=== PATIENT | female | born 1970 | race Caucasian/White ===

== ENCOUNTER → 2017-05-23 14:26 | Outpatient (CLI) | payer BC, SELFPAY ==
[2017-05-23 16:11] LABS: Vitamin D,25 Hydroxy 9.7 ng/mL (19.95-100.01)
[2017-05-23 16:30] LABS: Absolute Lymphocyte Count 0.98 X10^3/ul (0.83-4.51); Absolute Neutrophil Count 3.6 X10^3/uL (2.0-7.7); Basophil# 0.02 X10^3/uL; Basophil% 0.4 % (0-1); Eosinophil# 0.08 X10^3/uL; Eosinophils% 1.5 % (0-5); Hematocrit 45.3 % (37-47); Hemoglobin 15.3 g/dl (12.0-15.0); Lymphocyte # 0.98 X10^3/ul (4.0); Lymphocyte % 18.3 % (19-41); Mean Corp Hgb Conc 33.8 g/gl (32-36); Mean Corpuscular Volume 91.7 fL (81-99); Mean Platelet Vol. 10.1 fl (6.2-12.0); Monocyte# 0.65 X10^3/uL; Monocyte% 12.1 % (0-10); Neutrophil # 3.62 X10^3/uL (2.7-7.7); Neutrophil % 67.5 % (47-70); Platelet Count 176 K/mm3 (150-450); RBC Distribution Width CV 13.2 % (11.6-14.6); RBC Distribution Width SD 43.6 fl (35.1-43.9); Red Blood Count 4.94 M/mm3 (4.2-5.4); White Blood Count 5.4 K/mm3 (4.4-11.0)
[2017-05-23 16:31] LABS: POSITIVE COUNT NO; POSITIVE DIFFERENTIAL NO; POSITIVE MORPHOLOGY NO
[2017-05-23 16:40] LABS: Erythrocyte Sedimentation Rate 37 mm/hr (0-20)
[2017-05-23 17:21] LABS: ALB/GLOB Ratio 0.9 RATIO (0.9-2.4); AST(SGOT) 12 U/L (15-37); Alanine Aminotransfer ALT/SGPT 27 U/L (13-56); Albumin, Serum 3.7 g/dL (3.2-5.0); Alkaline Phosphatase 84 U/L (45-117); Anion Gap 8 (5-15); BUN 9 mg/dL (7-18); BUN/Creat Ratio 18.9 RATIO (10-20); Calcium,Total 8.5 mg/dL (8.5-10.1); Chloride 104 mmol/L (98-107); Creatinine, Serum 0.48 mg/dL (0.55-1.02); EST Glomerular Filtration Rate 147 mL/min (>60); Est Glom Filt Rate - Afr Amer 178 mL/min (>60); Globulin 4.1 g/dL (2.2-4.2); Glucose 88 mg/dL (74-106); Potassium 3.8 mmol/L (3.5-5.1); Protein, Total 7.8 g/dL (6.4-8.2); Sodium Level 139 mmol/L (136-145)
== END ==
PROVIDERS: Family Provider Family Medicine Geriatric Medicine; PCP Family Medicine Geriatric Medicine; Visit Provider Family Medicine Geriatric Medicine
DX: R53.83 Other fatigue (principal); E55.9 Vitamin D deficiency, unspecified; M35.3 Polymyalgia rheumatica
CPT/HCPCS: 36415; 80053; 82306; 84443; 85025; 85652; 86140

== ENCOUNTER 2017-05-25 17:01 | Emergency (ER) | payer BC, SELFPAY ==
[2017-05-25 17:02] VITALS: BP 158/96; PULSE 96; RESP 16; TEMP 36.8; O2SAT 96; BMI 37.4
[2017-05-25] MEDS: Tetracaine 0.5% Ophthalmic Bottle 1 DRP LEFT EYE (17:55)
[2017-05-25] MEDS: Acyclovir 800 MG Tablet PO (17:55)
[2017-05-25] MEDS: Fluorescein 1 MG STRIP 1 STRIP LEFT EYE (17:56)
--- NOTE | 2017-05-25 18:25 | ED.VISSUMM ---
- ER Visit Summary Date of Service: 05/25/17 Chief Complaint: Rash History of Present Illness: The patient is a [address] Wagner. She reports that she has a headache that began 5 days ago. It was 10 out of 10 at worst and 4-[address] Dempsey and was placed on prednisone. Her ESR was elevated and she is scheduled for temporal artery biopsy in [address] Foy. Patient reports that today she developed a rash on the left side of her forehead. She reports that yesterday her scalp on left eyebrow was exquisitely tender to even the lightest touch. She states that she has had blurred vision for approximately 1 week. Physical Examination: Vitals: Stable. Afebrile. General: Well-nourished and well-developed. Left eye: Slit lamp exam shows no fluorescein dye uptake. There are no dendritic lesions. Her cornea is not involved. Head: Normocephalic atraumatic. Neck: Supple, no lymphadenopathy. No JVD. Nontender. Cardiovascular: Regular rate and rhythm. No murmurs. Respiratory: No respiratory distress. Clear to auscultation bilaterally. Abdominal: Soft, nontender, nondistended, normal bowel sounds. No guarding, rebound, or peritoneal signs. Back: Nontender. Extremities: Nontender, no edema. Skin: Circular rash over the left side of her forehead consistent with shingles. No Tucker sign. Neurologic: Alert and oriented ?3. Cranial nerves II through XII are intact. Normal strength and sensation. Psych: Normal affect. Emergency Department Course and Treatment: She was treated with acyclovir. Treatment Plan: Patient was discussed with Dr. Dempsey. At this point the cause of her headache is now clear. She is instructed to cancel her temporal artery biopsy. She is instructed to continue her prednisone and [place]. She will be placed on valacyclovir as well. Follow-up with Dr. Skinner in 3 days to make sure there is not involvement of her eye. Follow-up Dr. Dempsey in 1 week for another exam. Return to the emergency department for any worsening symptoms. Disposition: To home in improved and stable condition. Impression: 1. Shingles to left side of forehead. This note was generated with [employer] software. It may contain incorrect words, spelling, and punctuation that were not noted in review of the chart prior to signing ED Disposition - Plan for ED Patient: Disposition: Home or Assisted Living Chief Complaint: Eye Problem Instructions: ED Shingles Prescriptions: Hydrocodone Bitart/Apap 5-325 [[place] 5/325] 1 - 2 tablet PO Q4H PRN PRN 3 Days #20 tablet PRN Reason: Pain Valacyclovir HCl [Valtrex] 1,000 mg PO TID #21 tablet Referrals: Uriel Wagner Chi, MD [Primary Care Provider] - 1 Week Radha Skinner MD [STAFF PHYSICIAN] - 3-5 Days
--- NOTE | 2017-05-25 18:29 | ED.DCSUM_ITS ---
- ER Visit Summary Date of Service: 05/25/17 Chief Complaint: Rash History of Present Illness: The patient is a [address] Wagner. She reports that she has a headache that began 5 days ago. It was 10 out of 10 at worst and 4-[address] Dempsey and was placed on prednisone. Her ESR was elevated and she is scheduled for temporal artery biopsy in [address] Foy. Patient reports that today she developed a rash on the left side of her forehead. She reports that yesterday her scalp on left eyebrow was exquisitely tender to even the lightest touch. She states that she has had blurred vision for approximately 1 week. Physical Examination: Vitals: Stable. Afebrile. General: Well-nourished and well-developed. Left eye: Slit lamp exam shows no fluorescein dye uptake. There are no dendritic lesions. Her cornea is not involved. Head: Normocephalic atraumatic. Neck: Supple, no lymphadenopathy. No JVD. Nontender. Cardiovascular: Regular rate and rhythm. No murmurs. Respiratory: No respiratory distress. Clear to auscultation bilaterally. Abdominal: Soft, nontender, nondistended, normal bowel sounds. No guarding, rebound, or peritoneal signs. Back: Nontender. Extremities: Nontender, no edema. Skin: Circular rash over the left side of her forehead consistent with shingles. No Tucker sign. Neurologic: Alert and oriented ?3. Cranial nerves II through XII are intact. Normal strength and sensation. Psych: Normal affect. Emergency Department Course and Treatment: She was treated with acyclovir. Treatment Plan: Patient was discussed with Dr. Dempsey. At this point the cause of her headache is now clear. She is instructed to cancel her temporal artery biopsy. She is instructed to continue her prednisone and [place]. She will be placed on valacyclovir as well. Follow-up with Dr. Skinner in 3 days to make sure there is not involvement of her eye. Follow-up Dr. Dempsey in 1 week for another exam. Return to the emergency department for any worsening symptoms. Disposition: To home in improved and stable condition. Impression: 1. Shingles to left side of forehead. This note was generated with [employer] software. It may contain incorrect words, spelling, and punctuation that were not noted in review of the chart prior to signing ED Disposition - Plan for ED Patient: Disposition: Home or Assisted Living Chief Complaint: Eye Problem Instructions: ED Shingles Prescriptions: Hydrocodone Bitart/Apap 5-325 [[place] 5/325] 1 - 2 tablet PO Q4H PRN PRN 3 Days # 20 tablet PRN Reason: Pain Valacyclovir HCl [Valtrex] 1,000 mg PO TID #21 tablet Referrals: Uriel Wagner Chi, MD [Primary Care Provider] - 1 Week Radha Skinner MD [STAFF PHYSICIAN] - 3-5 Days
[2017-05-25 18:35] VITALS: BP 158/96; PULSE 102; RESP 16; O2SAT 96
--- NOTE | 2017-05-25 18:45 | ED.RN ---
Verbal and written d/c instructions given. All questions answered. Skin w/d. ABCs intact. Gait slow and steady out of department.
== END 2017-05-25 18:43 | disposition home or self-care (01) ==
LOC: ED 18:11
PROVIDERS: Emergency Provider Emergency Medicine; Family Provider Family Medicine Geriatric Medicine; PCP Family Medicine Geriatric Medicine
DX: B02.9 Zoster without complications (principal); G35 Multiple sclerosis; Z72.0 Tobacco use; Z79.52 Long term (current) use of systemic steroids; Z79.899 Other long term (current) drug therapy
CPT/HCPCS: 99283; J7030; A4216

== ENCOUNTER → 2018-05-27 16:13 | Outpatient (CLI) | payer OTHER, SELFPAY ==
--- NOTE | 2018-05-27 16:20 | US_ITS ---
STUDY: RENAL ULTRASOUND - COMPLETE REASON FOR EXAM: Female, 48 years old. CONCERN FOR RETENTION TECHNIQUE: Ultrasound evaluation of the kidneys was performed with real-time and static todd-scale imaging. COMPARISON: None. FINDINGS: RIGHT KIDNEY: Normal location of the right kidney, which is normal in size. The right kidney measures 12.8 x 6.3 x 5.4 cm. There is a normal cortex of the right kidney. The renal cortex measures 1.3 cm. There is a 1.6 cm cyst. There are no right renal calculi. There is no right hydronephrosis. DISTAL RIGHT URETER: There is non-visualization of the distal right ureter. There is no demonstrated right ureterovesical junction calculus. There is no demonstrated right ureteral jet. LEFT KIDNEY: Normal location of the left kidney, which is normal in size. The left kidney measures 13.3 x 5.7 x 5.7 cm. There is a normal cortex of the left kidney. The renal cortex measures 1.7 cm. There is no left renal mass or cyst. There are no left renal calculi. There is no left hydronephrosis. DISTAL LEFT URETER: There is non-visualization of the distal left ureter. There is no demonstrated left ureterovesical junction calculus. There is a visualized left ureteral jet. BLADDER: The distended urinary bladder has a volume of 57 ml. The empty urinary bladder has a volume of 22 ml. There is a normal wall thickness of the distended urinary bladder. There is no demonstrated mass within the urinary bladder. There are no demonstrated bladder calculi. US/Kidney and Bladder IMPRESSION: Normal ultrasound of the kidneys and urinary bladder. Electronically Signed: Jace Schmidt MD at 23:51 EST , Service support ,
== END ==
PROVIDERS: Family Provider Family Medicine; PCP Family Medicine
DX: G35 Multiple sclerosis (principal)
CPT/HCPCS: 76770

== ENCOUNTER 2018-10-11 19:27 | Emergency (ER) | payer OTHER, SELFPAY ==
[2018-10-11 19:28] VITALS: BP 156/89; PULSE 92; RESP 16; TEMP 36.4; O2SAT 96; BMI 38.8
--- NOTE | 2018-10-11 19:35 | RAD_ITS ---
STUDY: X-RAY - RIGHT ANKLE REASON FOR EXAM: Female, 48 years old. Pain TECHNIQUE: 3 view(s) of the ankle. COMPARISON: None. FINDINGS: Normal visualized distal tibia and fibula. Normal medial and lateral malleoli. Normal tibiotalar articulation and ankle mortise. There is a bony density distal to the distal tibia which may be secondary to accessory ossicle or old unfused fracture fragment. There is no evidence for acute fracture at this time Normal visualized talus. Large plantar calcaneal spur and small posterior enthesophyte The visualized subtalar, talonavicular, calcaneocuboid and tarsal articulations are normal. Bimalleolar soft tissue swelling. RAD/Ankle min 3 Views IMPRESSION: Bimalleolar sprain. No evidence for acute fracture Electronically Signed: Kam Bob MD at 19:55 EDT , Service support ,
--- NOTE | 2018-10-11 20:33 | ED.DCSUM_ITS ---
- ER Visit Summary Date of Service: 10/11/18 Chief Complaint right ankle injury History of Present Illness: The patient is a 48 F who presents for right ankle injury. Patient states she is had a distal fibula fracture of the right lower extremity as well as multiple sprains. She was walking through her kitchen and suddenly felt something pull. Since then she has been having severe pain in the ankle and is able to bear weight on the heel but cannot fully walk on the foot. She has not taken anything for pain at this time. She has a history of multiple sclerosis. Physical Examination: Patient is awake and alert sitting in bed in no distress. Right lower extremity shows swelling over the lateral malleolus, mild tenderness to palpation, no obvious deformity, DP pulses 2+, sensation and strength are intact distally. Test Results: [] Clinical Impression(s) from Imaging Studies Ankle X-Ray 10/11/18 19:35 IMPRESSION: Bimalleolar sprain. No evidence for acute fracture Electronically Signed: Kam Bob MD at 19:55 EDT , Service support , Medications Given Discontinued Medications Naproxen (Naprosyn) 500 mg PO X1 ONE Stop: 10/11/18 20:33 Last Admin: 10/11/18 20:41 Dose: 500 mg Documented by: DULCE MARIA Emergency Department Course and Treatment: Patient was given naproxen for pain and an ice pack was placed on the ankle. An x-ray showed no evidence of acute fracture. Patient was placed in a Aircast splint and was given crutches to use as needed, weightbearing as tolerated. She is to follow-up with her orthopedic doctor for reevaluation. She is going to use rice therapy and [id number] naproxen for pain. Treatment Plan: [] Disposition: [] Impression: Right ankle sprain This note was generated with [employer] dictation software. It may contain incorrect words, spelling, and punctuation that were not noted in review of the chart prior to signing ED Disposition - Plan for ED Patient: Disposition: Home or Assisted Living Instructions: Sprain, Ankle, with X-Ray Referrals: Oleg Covington, DO [Primary Care Provider] - 3-5 Days if not improving Additional Instructions: Wear the splint and use the crutches as needed for comfort. Keep your ankle elevated and ice it several times a day. Use anti-inflammatories for pain. If you have any worsening of your condition or any new concerning symptoms, please return immediately to the emergency department for another evaluation.
[2018-10-11 20:38] VITALS: BP 129/92; PULSE 84; RESP 14; O2SAT 97
[2018-10-11] MEDS: Naproxen 500 MG Tablet PO (20:41)
[2018-10-11 21:34] VITALS: PULSE 82; RESP 16; O2SAT 98
== END 2018-10-11 21:35 | disposition home or self-care (01) ==
PROVIDERS: Emergency Provider Emergency Medicine; Family Provider Family Medicine; PCP Family Medicine
DX: S93.401A Sprain of unspecified ligament of right ankle, initial encounter (principal); X50.9XXA Other and unspecified overexertion or strenuous movements or postures, initial encounter; Y93.01 Activity, walking, marching and hiking; Y92.000 Kitchen of unspecified non-institutional (private) residence as the place of occurrence of the external cause; Y99.9 Unspecified external cause status; G35 Multiple sclerosis; Z79.899 Other long term (current) drug therapy
CPT/HCPCS: 73610; 99283

== ENCOUNTER → 2018-11-05 14:14 | Outpatient (CLI) | payer OTHER, SELFPAY ==
[2018-10-11 19:28] VITALS: BMI 38.8
[2018-11-05 15:47] LABS: Absolute Lymphocyte Count 0.99 X10^3/uL (0.83-4.51); Absolute Neutrophil Count 7.4 X10^3/uL (2.0-7.7); Basophil# 0.04 X10^3/uL; Basophil% 0.4 % (0-1); Eosinophil# 0.09 X10^3/uL; Hematocrit 42.7 % (37-47); Hemoglobin 14.3 g/dL (12.0-15.0); Lymphocyte # 0.99 X10^3/ul (4.0); Lymphocyte % 10.6 % (19-41); Mean Corp Hgb Conc 33.5 g/dL (32-36); Mean Corpuscular Hgb 30.9 pg (27.0-32.0); Mean Corpuscular Volume 92.2 fL (81-99); Mean Platelet Vol. 10.4 fl (6.2-12.0); Monocyte# 0.68 X10^3/uL; Monocyte% 7.3 % (0-10); NRBC Flagged by Analyzer 0 % (0-5); Neutrophil # 7.44 X10^3/uL (2.7-7.7); Neutrophil % 80.1 % (47-70); Platelet Count 207 K/mm3 (150-450); RBC Distribution Width CV 14.1 % (11.6-14.6); RBC Distribution Width SD 47.2 fl (35.1-43.9); Red Blood Count 4.63 M/mm3 (4.2-5.4); White Blood Count 9.3 K/mm3 (4.4-11.0)
[2018-11-05 16:26] LABS: ALB/GLOB Ratio 1.1 RATIO (0.9-2.4); AST(SGOT) 13 U/L (15-37); Alanine Aminotransfer ALT/SGPT 25 U/L (13-56); Albumin, Serum 3.7 g/dL (3.2-5.0); Alkaline Phosphatase 96 U/L (45-117); Anion Gap 6 (5-15); BUN 16 mg/dL (7-18); BUN/Creat Ratio 27.8 RATIO (10-20); Calcium,Total 8.9 mg/dL (8.5-10.1); Chloride 107 mmol/L (98-107); Creatinine, Serum 0.58 mg/dL (0.55-1.02); EST Glomerular Filtration Rate 118 mL/min (>60); Est Glom Filt Rate - Afr Amer 142 mL/min (>60); Globulin 3.5 g/dL (2.2-4.2); Glucose 111 mg/dL (74-106); Potassium 3.7 mmol/L (3.5-5.1); Protein, Total 7.2 g/dL (6.4-8.2); Sodium Level 142 mmol/L (136-145)
== END ==
PROVIDERS: Family Provider Family Medicine; PCP Family Medicine
DX: Z79.899 Other long term (current) drug therapy (principal)
CPT/HCPCS: 36415; 80053; 85025

== ENCOUNTER → 2019-09-10 13:46 | Outpatient (CLI) | payer OTHER, SELFPAY ==
[2019-09-10 15:47] LABS: Erythrocyte Sedimentation Rate 35 mm/hr (0-30)
[2019-09-10 15:57] LABS: Rheumatoid Factor < 10.0 IU/mL (<15)
[2019-09-12 13:57] LABS: ANTINUCLEAR ANTIBODIES DIRECT Negative (Negative)
[2019-09-16 03:06] LABS: Lyme IgG P18 Ab Absent (.); Lyme IgG P23 Ab Absent (.); Lyme IgG P28 Ab Absent (.); Lyme IgG P30 Ab Absent (.); Lyme IgG P39 Ab Absent (.); Lyme IgG P41 Ab Absent (.); Lyme IgG P45 Ab Absent (.); Lyme IgG P58 Ab Absent (.); Lyme IgG P66 Ab Absent (.); Lyme IgG P93 Ab Absent (.); Lyme IgM P23 Ab Absent (.); Lyme IgM P39 Ab Absent (.); Lyme IgM P41 Ab Absent (.)
[2019-09-16 14:51] LABS: CCP IgG Antibodies 4 units (0-19); Lyme IgG WB Interpretation Negative (.); Lyme IgM WB Interpretation Negative (.)
== END ==
PROVIDERS: PCP Family Medicine; Visit Provider Family Medicine
DX: M13.10 Monoarthritis, not elsewhere classified, unspecified site (principal)
CPT/HCPCS: 36415; 85652; 86038; 86140; 86200; 86225; 86235; 86431; 86617

== ENCOUNTER → 2019-10-07 14:54 | Outpatient (CLI) | payer OTHER, SELFPAY ==
[2019-10-07 15:06] LABS: Red Blood Cells-Urine 0 SEEN /hpf (0-5); White Blood Cells 0 SEEN /hpf (0-5)
[2019-10-07 17:55] LABS: Color, Urine Yellow (Yellow); Glucose, Dipstick Normal (Normal); Ketone-Dipstick 5 mg/dl (Negative); Leukocyte Esterase-Dipstick 25 /ul (Negative); Nitrite-Dipstick Negative (Negative); Occult Blood-Urine Negative /ul (Negative); Protein-Dipstick Negative (Negative); Urine Bilirubin Dipstick Negative (Negative); Urine Clarity Sl. Cloudy (Clear); Urine Urobilinogen Normal (Normal)
[2019-10-07 18:04] LABS: Bacteria 1+ /hpf (None Seen); Calcium Oxalate Crystals Ur 2+ /hpf (<or=2+); Mucous, Urine 2+ /hpf (<or=2+); Squamous Epithelial Cells - UA 0-5 SEEN /hpf (5-10)
[2019-10-07 18:25] LABS: Anion Gap 6 (5-15); BUN 13 mg/dL (7-18); Calcium,Total 8.7 mg/dL (8.5-10.1); Chloride 105 mmol/L (98-107); Creatinine, Serum 0.43 mg/dL (0.55-1.02); EST Glomerular Filtration Rate 162 mL/min (>60); Est Glom Filt Rate - Afr Amer 196 mL/min (>60); Glucose 99 mg/dL (74-106); Potassium 3.1 mmol/L (3.5-5.1); Sodium Level 141 mmol/L (136-145); T4 Free Direct 0.86 ng/dL (0.76-1.46); Thyroid Stim Hormone (TSH) 1.22 uIU/mL (0.358-3.74)
[2019-10-09 05:08] LABS: SAR-COV-2 IGG ANTIBODY Negative (Negative)
== END ==
PROVIDERS: PCP Family Medicine; Visit Provider Family Medicine
DX: Z20.828 Contact with and (suspected) exposure to other viral communicable diseases (principal); R53.83 Other fatigue; R60.0 Localized edema
CPT/HCPCS: 80048; 81001; 84439; 84443; 86769; G2023

== ENCOUNTER → 2019-11-13 09:02 | Outpatient (CLI) | payer OTHER, SELFPAY ==
--- NOTE | 2019-11-13 09:10 | VDLE_ITS ---
Reason For Study: Edema RIGHT LEFT CFV is compressible, spontaneous, phasic, CFV is compressible, spontaneous, phasic, competent and demonstrates normal competent, and demonstrates normal augmentation. augmentation. FV is compressible, spontaneous, phasic, FV is compressible, spontaneous, phasic, competent and demonstrates normal competent and demonstrates normal augmentation. augmentation. POP V is compressible, spontaneous, phasic, POP V is compressible, spontaneous, phasic, competent and demonstrates normal competent and demonstrates normal augmentation. augmentation. T/P Trunk is compressible. T/P Trunk is compressible. PTV is compressible. PTV is compressible. RT PerV is compressible. LT PerV is compressible. SFJ is competent and measures 1.05 x 1.12 cm. SFJ is competent and measures 0.96 x 0.89 cm. GSV proximal thigh measures 0.51 x 0.50 cm. GSV proximal thigh measures 0.59 x 0.56 cm. GSV at knee measures 0.50 x 0.51 cm. GSV above knee is competent. GSV is competent throughout. GSV at knee measures 0.57 x 0.58 cm. SSV at junction is competent and measures GSV below knee is INCOMPETENT for greater 0.31 x 0.31 cm. than 0.5 seconds. Procedure SSV at junction is INCOMPETENT for greater Exam performed in department. than 0.5 seconds and measures 0.25 x 0.26 cm. Interpretation Summary Deep veins of the lower extremities are bilaterally patent and compressible segmentally. There is no evidence of deep vein thrombosis on either side. Valvular competence appears intact within the proximal deep venous systems bilaterally. The great saphenous veins appear bilaterally patent and compressible segmentally. Sapheno-femoral junctions are bilaterally competent . The right great saphenous vein appears segmentally competent. The left great saphenous vein appears competent above the knee. The left great saphenous vein appears incompetent below the knee. The right small saphenous vein is patent and competent. The left small saphenous vein is patent and incompetent. Ordering Physician: Oleg Covington Referring Physician: Oleg Covington Performed By: Kellen Clark RVT
== END ==
PROVIDERS: PCP Family Medicine; Visit Provider Family Medicine
DX: R60.0 Localized edema (principal)
CPT/HCPCS: 93970

== ENCOUNTER → 2020-01-29 09:53 | Outpatient (CLI) | payer OTHER, SELFPAY ==
--- NOTE | 2020-01-29 09:56 | ECHOD_ITS ---
Reason For Study: EDEMA Procedure This was a 2D Doppler, Color Flow transthoracic echocardiogram. Exam performed in department. Left Ventricle Normal LV size. The estimated ejection fraction is 65 %. No evidence for diastolic dysfunction. No regional wall motion abnormalities noted. Right Ventricle Normal right ventricle. Normal systolic function. Atria Normal left atrium. Normal right atrium. No doppler evidence for ASD. Mitral Valve There is no mitral valve stenosis. No mitral valve insufficiency. Tricuspid Valve There is no tricuspid stenosis. Trivial tricuspid valve insufficiency. Unable to estimate RV systolic pressure due to insufficient tricuspid regurgitant envelope. Aortic Valve Trisinus/trileaflet aortic valve. There is no aortic stenosis. No aortic valve insufficiency. Pulmonic Valve There is no pulmonic valvular stenosis. No pulmonic valve insufficiency. Great Vessels Normal aortic root. Pericardium/Pleural No pericardial effusion. MMode/2D Measurements & Calculations LVIDd: 4.7 cm IVSd: 1.0 cm Ao root diam: 3.6 cm LVIDs: 3.0 cm LVPWd: 1.0 cm RVDd: 4.0 cm FS: 37.0 % LAV(MOD-bp): 54.6 ml LVAd ap4: 27.3 cm2 SV(MOD-sp4): 43.1 ml LAV(MOD-bp) Indexed: 24.6 ml/m2 EDV(MOD-sp4): 80.2 ml LAV(MOD-sp2): 56.0 ml EDV(sp4-el): 82.5 ml LAV(MOD-sp4): 50.4 ml LVAs ap4: 16.5 cm2 ESV(MOD-sp4): 37.1 ml ESV(sp4-el): 35.6 ml EF(MOD-sp4): 53.7 % EF(sp4-el): 56.9 % SV(sp4-el): 47.0 ml LA A4 area: 19.3 cm2 LA dimension(2D): 3.7 cm RA A4 area: 17.9 cm2 Time Measurements MV dec time: 0.15 sec Doppler Measurements & Calculations MV E max nathan: 53.4 cm/sec Lat Peak E' Nathan: 12.0 cm/sec Med Peak E' Nathan: 7.0 cm/sec MV A max nathan: 59.6 cm/sec E/E' lat: 4.4 E/E' med: 7.6 MV E/A: 0.90 Ao V2 max: 126.1 cm/sec LV V1 max: 96.6 cm/sec PA V2 max: 103.8 cm/sec Ao max P.4 mmHg LV V1 max P.7 mmHg TR max nathan: 274.5 cm/sec TR max P.1 mmHg Interpretation Summary The estimated ejection fraction is 65 %. No evidence for diastolic dysfunction. Ordering Physician: Oleg Covington Referring Physician: Oleg Covington Performed By: Sydney Fan, ELIAZAR, RVT
[2020-01-29 11:37] LABS: Absolute Lymphocyte Count 1.28 X10^3/uL (0.83-4.51); Absolute Neutrophil Count 4.5 X10^3/uL (2.0-7.7); Basophil# 0.02 X10^3/uL; Basophil% 0.3 % (0-1); Eosinophils% 4.4 % (0-5); Hematocrit 43.4 % (37-47); Lymphocyte # 1.28 X10^3/ul (4.0); Lymphocyte % 18.9 % (19-41); Mean Corp Hgb Conc 32.3 g/dL (32-36); Mean Platelet Vol. 9.9 fl (6.2-12.0); Monocyte# 0.69 X10^3/uL; Monocyte% 10.2 % (0-10); NRBC Flagged by Analyzer 0 % (0-5); Neutrophil # 4.46 X10^3/uL (2.7-7.7); Neutrophil % 65.6 % (47-70); Platelet Count 237 K/mm3 (150-450); RBC Distribution Width CV 13.4 % (11.6-14.6); RBC Distribution Width SD 47.8 fl (35.1-43.9); Red Blood Count 4.52 M/mm3 (4.2-5.4); White Blood Count 6.8 K/mm3 (4.4-11.0)
[2020-01-29 12:18] LABS: ALB/GLOB Ratio 0.9 RATIO (0.9-2.4); AST(SGOT) 12 U/L (15-37); Alanine Aminotransfer ALT/SGPT 18 U/L (13-56); Albumin, Serum 3.4 g/dL (3.2-5.0); Alkaline Phosphatase 95 U/L (45-117); Anion Gap 2 (5-15); BUN 13 mg/dL (7-18); BUN/Creat Ratio 19.9 RATIO (10-20); Calcium,Total 8.8 mg/dL (8.5-10.1); Chloride 105 mmol/L (98-107); Creatinine, Serum 0.65 mg/dL (0.55-1.02); EST Glomerular Filtration Rate 101 mL/min (>60); Est Glom Filt Rate - Afr Amer 123 mL/min (>60); Globulin 3.8 g/dL (2.2-4.2); Glucose 93 mg/dL (74-106); Potassium 3.6 mmol/L (3.5-5.1); Protein, Total 7.2 g/dL (6.4-8.2); Sodium Level 140 mmol/L (136-145)
== END ==
PROVIDERS: PCP Family Medicine; Referring Provider Family Medicine; Visit Provider Family Medicine
DX: R60.0 Localized edema (principal); Z79.899 Other long term (current) drug therapy
CPT/HCPCS: 36415; 80053; 85025; 93306

== ENCOUNTER 2020-02-02 01:37 | Emergency (ER) | payer OTHER, SELFPAY ==
[2020-02-02 01:38] VITALS: BP 144/85; PULSE 92; RESP 17; TEMP 36.2; O2SAT 96; BMI 40.6
--- NOTE | 2020-02-02 02:09 | ED.VIS.GEN ---
History of Present Illness Chief Complaint: Back Informant: Patient Narrative: Stated a couple days ago she developed a back spasm in her left lower back. She can see the muscle spasming. It was worse tonight when getting out of shower. She has been using NSAIDs and ice. She has had this happen in the past. No specific injury but she thinks she might have overdone it. She has MS but does not feel like that is flaring up. It is in her left lower back. It does not radiate to her leg. No loss of bowel or bladder function. Requesting pain control. - Past Medical History (1) Multiple sclerosis Status: Acute (2) Stroke Status: Acute (3) TIA (transient ischemic attack) Status: Acute Past Medical History - Allergies and Home Meds Allergies/Adverse Reactions: Allergies No Known Allergies Allergy (Verified 10/11/18 19:29) Primary Care Physician: Oleg Covington DO [Primary Care Provider] - Prior records reviewed: Yes Past Medical History: - - See problem list Surgical History: no surgical history Lives: With Family Smoking Status: Current every day smoker Alcohol: None Drugs: None - Family History Maternal Family History: Reports: - - mother with cad and bypass Paternal Family History: Reports: - - early Review of Systems General: Denies: Chills, Fever, Sweats Eyes: Denies: Visual changes - bilaterally, Diplopia ENT: Denies: Rhinorrhea, Sore throat Cardiovascular: Denies: Chest pain, Palpitations Respiratory: Denies: Dyspnea, Cough, Dyspnea on exertion Gastrointestinal: Denies: Abdominal pain, Nausea, Vomiting, Diarrhea, Melena, Hematochezia Genitourinary: Denies: Dysuria, Hematuria, Frequency Musculoskeletal: Reports: Back pain. Denies: Extremity Pain Skin: Denies: Rash, Wounds Neurological: Denies: Headache, Weakness, Numbness Physical Exam Vital Signs/Narrative: Vital Signs Temp Pulse Resp BP Pulse Ox 02/02/20 01:38 97.2 F L 92 17 144/85 H 96 General: Well nourished, Well developed, No Acute Distress Head: Normocephalic, Atraumatic Eyes: Perrl, EOMI ENT: Moist mucous membranes, No rhinorrhea Neck: Supple, Nontender Cardiovascular: Regular rate, Regular rhythm, No murmurs Respiratory: No distress, CTA bilaterally, Chest nontender Abdomen: Soft, Nontender, Nondistended, Normal bowel sounds Back: Nontender - decreased , Normal Inspection, - - Decreased mild range of motion of the lumbar spine secondary to pain left lateral lumbar Extremities: Nontender, No edema Skin: Normal color, No rash Neurological: Alert, Oriented x3, Cranial nerves II-XII grossly intact, Normal Strength, Normal Sensation Psychological: Normal affect, Normal Mood Diagnostic/Tx/Re-eval - Medical Decision Making Do not feel the patient needs imaging studies. Resting comfortably. I feel she has a lower lumbar strain versus spasm. Treated with morphine and Toradol. Will be discharged with a short course of Percocet and Flexeril. ED Disposition - Plan for ED Patient: Disposition: Home or Assisted Living Diagnosis: Back pain, lumbosacral Instructions: ED Spasm Back No Trauma Prescriptions: cycloBENZAPRine HCl [Flexeril] 10 mg PO TID PRN #20 tab PRN Reason: Muscle Spasm Prescription Printed Oxycodone HCl/Acetaminophen [Percocet 5/325] 1 tab PO Q6H PRN PRN 3 Days #10 tab PRN Reason: Pain Prescription Printed Referrals: Oleg Covington DO [Primary Care Provider] -
[2020-02-02] MEDS: Ketorolac 15 MG/ML Vial IM (02:18)
[2020-02-02] MEDS: Morphine 4 MG/ML Syringe IM (02:18)
[2020-02-02 02:34] VITALS: RESP 16; O2SAT 98
== END 2020-02-02 03:37 | disposition home or self-care (01) ==
LOC: ED 02:17
PROVIDERS: Emergency Provider Emergency Medicine; PCP Family Medicine
DX: M54.5 Low back pain (principal); G35 Multiple sclerosis; F17.200 Nicotine dependence, unspecified, uncomplicated; Z86.73 Personal history of transient ischemic attack (TIA), and cerebral infarction without residual deficits
CPT/HCPCS: 96372; 99282

== ENCOUNTER → 2020-03-16 17:00 | Outpatient (CLI) | payer OTHER, SELFPAY ==
--- NOTE | 2020-03-16 17:09 | MRI_ITS ---
HISTORY: ms, new medication x 1 year, increasing severity of MS symptoms TECHNIQUE: Routine brain MR protocol was performed without and with 23 mL of intravenous Dotarem gadolinium contrast agent. COMPARISON: Most recent comparison MRI of the brain is from June 07 2016. Additional comparisons MRIs of the brain are from August 10, 2014, and September 22, 2013. FINDINGS: # of images incl. paperwork: 380 On the sagittal FLAIR series, series 4 image 1.1, which correlates to the axial FLAIR series, series 7 image 18. This demonstrates a tiny focal area of white matter disease oriented perpendicularly away from the lateral ventricle, that measures 6 mm. The sella is mostly empty. I believe it is the sella turcica which is compressed against the inferior wall of the sella turcica likely due to CSF pulsations. This is unchanged since the previous study. Brain volume is normal. No acute stroke is present. Paranasal sinuses are clear. There are no masses, herniations, nor deviations. Orbits and globes are normal. The pituitary and sella turcica are not enlarged. Flow is present within major central intracranial arteries. No enhancing lesions are present.. 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 6 mm right sided periventricular white matter lesion oriented perpendicularly away from the lateral ventricle consistent with, but not specific for a demyelinating plaque. This lesion is larger, and more apparent than on the most recent study of June 07, 2016. This is larger and more apparent than the MRI from 2014. This is consistent with but not specific for worsening MS. at 0542 Reported and signed by: Thai Johns MD Electronically Signed: Thai Johns MD at 5:40 EST Tel , Service support ,
--- NOTE | 2020-03-16 17:09 | MRI_ITS ---
HISTORY: ms, new medication x 1 year, increasing severity of MS symptoms EXAMINATION: MR Spine Cervical WO/W Contrast . TECHNIQUE: Multiplanar and multisequence MR images of the cervical spine were performed. IV Contrast dosage and agent: 23 mL of intravenous to [place] COMPARISON: Most recent comparison MRI of the cervical spine is from June 07, 2016. FINDINGS: There is a large amount of subcutaneous fat. Cervical vertebral body heights, alignment are intact. Trace fatty marrow signal within the superior aspect of the C7 vertebral body is unchanged. Marrow signal otherwise is normal. No expansile or destructive bone lesion is demonstrated. Visualized posterior fossa elements and spinal cord are normal in signal intensity and structure. No intradural soft tissue mass or epidural fluid collection is seen. Prevertebral soft tissues are unremarkable. C2/C3: No disc bulge, central canal stenosis, or neural foraminal stenosis. Small amount of bone disc complex extends posteriorly into the spinal canal without abutting the cord C3/C4: No disc bulge, central canal stenosis, or neural foraminal stenosis. Small amount of bone disc complex extends posteriorly into the spinal canal without abutting the cord C4/C5: No disc bulge, central canal stenosis, or neural foraminal stenosis. Small amount of bone disc complex thins posteriorly into the spinal canal abutting the cord C5/C6: Larger amount of bone disc complex possibly with disc protrusion extends posteriorly into the spinal canal. It abuts displaces and deforms the cord this disease has progressed since the previous study. It remains greater on the left than the right. C6/C7: No disc bulge, central canal stenosis, or neural foraminal stenosis. C7/T1: No disc bulge, central canal stenosis, or neural foraminal stenosis. 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 The severity of this disease is greater than the previous study if every 2016. Normal cord signal without evidence of multiple sclerosis. at 0603 Reported and signed by: Thai Johns MD Electronically Signed: Thai Johns MD at 6:02 EST Tel , Service support ,
== END ==
PROVIDERS: PCP Family Medicine; Visit Provider Internal Medicine
DX: G35 Multiple sclerosis (principal)
CPT/HCPCS: 70553; 72156; A9575

== ENCOUNTER → 2020-05-19 14:49 | Outpatient (CLI) | payer OTHER, SELFPAY ==
--- NOTE | 2020-05-19 14:51 | BI_ITS ---
MAMMOGRAPHY - BILATERAL SCREENING REASON FOR EXAM: Female, 50 years old. Routine annual screening examination. PERTINENT HISTORY: Non-contributory. TECHNIQUE: Digital bilateral breast isis (3D mammographic acquisition) in the CC and MLO projections. 2-D mediolateral oblique (MLO) and craniocaudad (CC) views of both breasts were obtained. CAD: Full Field Digital Mammography with Computer Added Detection was performed. COMPARISON: None. Baseline examination. FINDINGS: Breast Composition: There are scattered areas of fibroglandular density. There are no dominant masses or suspicious calcifications. No other significant abnormalities are identified. BI/SCRN MAMM (CAD)W/ISIS BILAT IMPRESSION: Negative screening mammogram. Yearly followup mammogram recommended. (A) ASSESSMENT CATEGORY: BIRADS Category 1: Negative. A letter regarding these results will be sent to the patient by the facility within 30 days. Approximately 10% of breast cancers are not detected by mammography. A normal mammogram should not delay biopsy of a clinically suspicious abnormality. [id number] Electronically Signed: Kilo Bhatt MD at 15:34 EST , Service support ,
== END ==
PROVIDERS: PCP Family Medicine; Referring Provider Family Medicine; Visit Provider Family Medicine
DX: Z12.31 Encounter for screening mammogram for malignant neoplasm of breast (principal)
CPT/HCPCS: 77063; 77067

== ENCOUNTER → 2020-05-26 | Outpatient (CLI) | payer OTHER, SELFPAY ==
[2020-05-26 13:23] VITALS: BMI 39.1
== END | disposition home or self-care (01) ==
PROVIDERS: PCP Family Medicine; Referring Provider Nurse Practitioner Women's Health; Visit Provider Nurse Practitioner Women's Health
DX: N94.9 Unspecified condition associated with female genital organs and menstrual cycle (principal)
CPT/HCPCS: 87070; 87205

== ENCOUNTER 2020-06-09 12:59 | Outpatient (RCR) | payer OTHER, SELFPAY ==
[2020-06-03 13:32] VITALS: BMI 40.6
--- NOTE | 2020-06-09 13:51 | HP.PTEVAL_ITS ---
Patient's Visit Information GILBERTO DALAL is a 50 year old F referred to Physical Therapy by Dr. Deepthi Alvarado DO with a diagnosis of R knee OA, possible mensicus. Date of Evaluation: 06/09/20 Physical Therapist: Issa Molina, DPT, OCS, CSCS - Visit Plan Frequency: 1x/Week Duration: 4-6 Weeks Plan: weekly due to large co pay to progress HEP. Next:check ROM adn instruct in HS, quad stretch adn SLR felxion, abd , ext. - Subjective R knee pain intermittently. Fell tripping on item around [place]. Valgus stress to knee when she fell. Hurt on and off since. Woke up one day with bad pain and could not walk. Does have MS but no previous knee problems, did have swelling prior. Now has daily pain. Wears brace most of time although is not wearing it today. Today is a good day. On bad days is 10/10 and cannot walk. Not sure what the pattern is for bad days. 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 Does it yoan now and then but it makes her worse. Sleep is not great normally and no worse than usual. Keeps her form working as much around the house. Lives in multi level house and does steps less often adn one at a time. Has [employer] tundra and getting in that can be an issue. - Pain R medial knee Pain Intensity (Out of 10): 0 Pain Intensity Range: 0, 10 - Objective Walks with slight R antalgia, Steps using R to ascend and descend with rail, educated to use L to take stress of R knee.. Trasfers I bed and chair. [place] is good. R knee 0-120 aROM, pain end of ext adn flexion, L knee is 0-133. R knee gave on e time with step over with L. Hip AROM is symmetrical and functional, quads, ITB and HS mod tight. Ankle AROM WFL and good coordination. Strength at ankles 4+/5, knee ext R 4 and flexion 4 adn L ext 4 and R ext 4-. pain with R ext. Patella moves well. + bounce home R, - patellar grind., - ant drawer, - varus and valgus. all on R. - Balance Scores Functional Gait Assessment Score: 26 % Disability: 13.3400 - Goals Goal 1:: Full aROM R knee without pain Goal Time Frame: 2-4 Weeks Goal 2:: Strength R knee improved and no catching pain causing her knee to give. Goal Time Frame: 2-4 Weeks Goal 3:: Pt feel 75% better in overall condition and not limited in activity of shopping. Goal Time Frame: 2-4 Weeks - Rehabilitation Potential Physical Therapy Diagnosis: R knee pain, meniscal pathology. Rehabilitation Potential: Fair - Anticipated Interventions Patient/Client Instruction: Educate patient on: Condition, Plan of Care For the Purpose of:: To decrease pain, To increase ROM, To improve muscle performance and motor function, To improve gait and locomotor functions Therapeutic Exercise to Include: Strength training, Flexibilty training, Passive ROM, Active ROM For the Purpose of:: To decrease pain, To increase ROM, To improve muscle performance and motor function, To improve ability of physical actions for home/community/work/leisure, To improve gait and locomotor functions Thank you for the opportunity to evaluate your patient. For Medicare and Medicare HMO plans, please review the plan of care and approve it. It will need to be FAXED BACK to us at [phone] for Medicare purposes. For Medicare only, by signing this I certify the plan of care. Please let me know if there are questions or concerns regarding this plan of care. Physician Signature: Date:
--- NOTE | 2020-08-04 10:15 | HP.PT.NRP ---
GILBERTO DALAL was seen in my office for initial evaluation on 06/09/20. The following Plan of Care was established for this patient: Initial Frequency: 1x/Week Initial Duration: 4-6 Weeks Patient/Client Instruction: Educate patient on: Condition, Plan of Care For the Purpose of:: To decrease pain, To increase ROM, To improve muscle performance and motor function, To improve gait and locomotor functions Therapeutic Exercise to Include: Strength training, Flexibilty training, Passive ROM, Active ROM For the Purpose of:: To decrease pain, To increase ROM, To improve muscle performance and motor function, To improve ability of physical actions for home/community/work/leisure, To improve gait and locomotor functions This patient was last seen in our office 06/09/20. Pertinent comments regarding their Physical therapy will appear below: Pt seen for initial evlaution adn marie zuniga. She was to be seen weekly but did not schedule or attend any visits. at this point, it has been nearly two months and I will disocntinue due to nonattendance. At this point I will be discontinuing this patient from physical therapy. I would be happy to see this patient again in the future if found appropriate by the physician. Thank you! Issa Molina, DPT, OCS, CSCS
== END 2020-06-09 19:00 | disposition home or self-care (01) ==
LOC: PT 12:59
PROVIDERS: PCP Family Medicine; Referring Provider Orthopaedic Surgery; Visit Provider Orthopaedic Surgery
DX: M17.11 Unilateral primary osteoarthritis, right knee (principal)
CPT/HCPCS: 97110; 97162

== ENCOUNTER → 2020-07-05 07:23 | Outpatient (CLI) | payer OTHER, SELFPAY ==
[2020-07-05 08:52] LABS: Absolute Lymphocyte Count 0.88 X10^3/uL (0.83-4.51); Absolute Neutrophil Count 4.2 X10^3/uL (2.0-7.7); Basophil# 0.02 X10^3/uL; Basophil% 0.3 % (0-1); Eosinophil# 0.18 X10^3/uL; Hematocrit 48.4 % (37-47); Hemoglobin 16.3 g/dL (12.0-15.0); Lymphocyte # 0.88 X10^3/ul (4.0); Lymphocyte % 14.5 % (19-41); Mean Corp Hgb Conc 33.7 g/dL (32-36); Mean Corpuscular Hgb 31.3 pg (27.0-32.0); Mean Corpuscular Volume 93.1 fL (81-99); Mean Platelet Vol. 10.2 fl (6.2-12.0); Monocyte# 0.75 X10^3/uL; Monocyte% 12.4 % (0-10); NRBC Flagged by Analyzer 0 % (0-5); Neutrophil # 4.21 X10^3/uL (2.7-7.7); Neutrophil % 69.3 % (47-70); Platelet Count 220 K/mm3 (150-450); RBC Distribution Width CV 13.8 % (11.6-14.6); RBC Distribution Width SD 47.3 fl (35.1-43.9); White Blood Count 6.1 K/mm3 (4.4-11.0)
[2020-07-05 09:24] LABS: ALB/GLOB Ratio 0.9 RATIO (0.9-2.4); AST(SGOT) 17 U/L (15-37); Alanine Aminotransfer ALT/SGPT 30 U/L (13-56); Albumin, Serum 3.8 g/dL (3.2-5.0); Alkaline Phosphatase 123 U/L (45-117); Anion Gap 5 (5-15); BUN 16 mg/dL (7-18); BUN/Creat Ratio 24.1 RATIO (10-20); Calcium,Total 9.3 mg/dL (8.5-10.1); Chloride 99 mmol/L (98-107); Creatinine, Serum 0.66 mg/dL (0.55-1.02); EST Glomerular Filtration Rate 99 mL/min (>60); Est Glom Filt Rate - Afr Amer 120 mL/min (>60); Globulin 4.1 g/dL (2.2-4.2); Glucose 100 mg/dL (74-106); Potassium 4.2 mmol/L (3.5-5.1); Protein, Total 7.9 g/dL (6.4-8.2); Sodium Level 136 mmol/L (136-145)
== END ==
LOC: LAB 07:29
PROVIDERS: PCP Family Medicine
DX: G35 Multiple sclerosis (principal); Z79.899 Other long term (current) drug therapy
CPT/HCPCS: 36415; 80053; 85025

== ENCOUNTER → 2020-07-21 11:08 | Outpatient (CLI) | payer OTHER, SELFPAY ==
[2020-07-21 12:28] LABS: Absolute Lymphocyte Count 0.96 X10^3/uL (0.83-4.51); Basophil# 0.02 X10^3/uL; Basophil% 0.2 % (0-1); Eosinophil# 0.06 X10^3/uL; Eosinophils% 0.7 % (0-5); Hematocrit 46.7 % (37-47); Hemoglobin 15.7 g/dL (12.0-15.0); Lymphocyte # 0.96 X10^3/ul (4.0); Lymphocyte % 10.9 % (19-41); Mean Corp Hgb Conc 33.6 g/dL (32-36); Mean Corpuscular Hgb 31.3 pg (27.0-32.0); Mean Platelet Vol. 9.9 fl (6.2-12.0); Monocyte# 0.69 X10^3/uL; Monocyte% 7.8 % (0-10); NRBC Flagged by Analyzer 0 % (0-5); Neutrophil # 6.99 X10^3/uL (2.7-7.7); Neutrophil % 79.3 % (47-70); Platelet Count 273 K/mm3 (150-450); RBC Distribution Width CV 14.1 % (11.6-14.6); RBC Distribution Width SD 47.8 fl (35.1-43.9); Red Blood Count 5.02 M/mm3 (4.2-5.4); White Blood Count 8.8 K/mm3 (4.4-11.0)
[2020-07-21 12:52] LABS: ALB/GLOB Ratio 0.9 RATIO (0.9-2.4); AST(SGOT) 13 U/L (15-37); Alanine Aminotransfer ALT/SGPT 31 U/L (13-56); Albumin, Serum 3.4 g/dL (3.2-5.0); Alkaline Phosphatase 81 U/L (45-117); Anion Gap 2 (5-15); BUN 19 mg/dL (7-18); BUN/Creat Ratio 31.7 RATIO (10-20); Chloride 106 mmol/L (98-107); EST Glomerular Filtration Rate 111 mL/min (>60); Est Glom Filt Rate - Afr Amer 135 mL/min (>60); Globulin 3.6 g/dL (2.2-4.2); Glucose 100 mg/dL (74-106); Potassium 4.3 mmol/L (3.5-5.1); Sodium Level 136 mmol/L (136-145)
[2020-07-22 08:09] LABS: Immunoglobulin A 179 mg/dL (87-352); Immunoglobulin G 814 mg/dL (586-1602)
[2020-07-22 08:44] LABS: Immunoglobulin M 41 mg/dL (26-217)
== END ==
LOC: LAB 11:12
PROVIDERS: PCP Family Medicine
DX: Z79.899 Other long term (current) drug therapy (principal)
CPT/HCPCS: 36415; 80053; 82784; 85025

== ENCOUNTER → 2020-12-21 14:27 | Outpatient (CLI) | payer OTHER, SELFPAY ==
[2020-12-21 15:36] LABS: Absolute Lymphocyte Count 1.94 X10^3/uL (0.83-4.51); Absolute Neutrophil Count 6.5 X10^3/uL (2.0-7.7); Basophil# 0.04 X10^3/uL; Basophil% 0.4 % (0-1); Eosinophil# 0.12 X10^3/uL; Eosinophils% 1.3 % (0-5); Hematocrit 46.8 % (37-47); Hemoglobin 15.7 g/dL (12.0-15.0); Lymphocyte # 1.94 X10^3/ul (0.83-4.51); Lymphocyte % 20.5 % (19-41); Mean Corp Hgb Conc 33.5 g/dL (32-36); Mean Corpuscular Hgb 31.2 pg (27.0-32.0); Mean Platelet Vol. 10.2 fl (6.2-12.0); Monocyte# 0.78 X10^3/uL; Monocyte% 8.2 % (0-10); NRBC Flagged by Analyzer 0 % (0-5); Neutrophil % 68.5 % (47-70); Platelet Count 278 K/mm3 (150-450); RBC Distribution Width CV 13.6 % (11.6-14.6); RBC Distribution Width SD 46.3 fl (35.1-43.9); Red Blood Count 5.03 M/mm3 (4.2-5.4); White Blood Count 9.5 K/mm3 (4.4-11.0)
[2020-12-21 16:08] LABS: ALB/GLOB Ratio 0.8 RATIO (0.9-2.4); AST(SGOT) 12 U/L (15-37); Alanine Aminotransfer ALT/SGPT 23 U/L (13-56); Albumin, Serum 3.4 g/dL (3.2-5.0); Alkaline Phosphatase 104 U/L (45-117); Anion Gap 5 (5-15); BUN 11 mg/dL (7-18); Calcium,Total 8.9 mg/dL (8.5-10.1); Chloride 102 mmol/L (98-107); Creatinine, Serum 0.58 mg/dL (0.55-1.02); EST Glomerular Filtration Rate 116 mL/min (>60); Est Glom Filt Rate - Afr Amer 140 mL/min (>60); Globulin 4.2 g/dL (2.2-4.2); Glucose 95 mg/dL (74-106); Potassium 4.1 mmol/L (3.5-5.1); Protein, Total 7.6 g/dL (6.4-8.2); Sodium Level 136 mmol/L (136-145)
[2020-12-23 05:07] LABS: Immunoglobulin A 176 mg/dL (87-352); Immunoglobulin G 804 mg/dL (586-1602)
[2020-12-23 19:49] LABS: Immunoglobulin M 34 mg/dL (26-217)
== END ==
LOC: LAB 14:29
PROVIDERS: PCP Family Medicine
DX: Z79.899 Other long term (current) drug therapy (principal)
CPT/HCPCS: 36415; 80053; 82784; 85025

== ENCOUNTER 2021-04-29 16:38 | Outpatient (CLI) | payer OTHER, SELFPAY ==
[2021-04-29 17:30] LABS: Absolute Lymphocyte Count 1.69 X10^3/uL (0.83-4.51); Absolute Neutrophil Count 6.4 X10^3/uL (2.0-7.7); Basophil# 0.02 X10^3/uL; Basophil% 0.2 % (0-1); Eosinophil# 0.14 X10^3/uL; Eosinophils% 1.5 % (0-5); Hematocrit 43.6 % (37-47); Hemoglobin 14.5 g/dL (12.0-15.0); Lymphocyte # 1.69 X10^3/ul (0.83-4.51); Lymphocyte % 18.6 % (19-41); Mean Corp Hgb Conc 33.3 g/dL (32-36); Mean Corpuscular Hgb 30.6 pg (27.0-32.0); Mean Platelet Vol. 9.6 fl (6.2-12.0); Monocyte# 0.78 X10^3/uL; Monocyte% 8.6 % (0-10); NRBC Flagged by Analyzer 0 % (0-5); Neutrophil % 70.5 % (47-70); Platelet Count 279 K/mm3 (150-450); RBC Distribution Width CV 14.2 % (11.6-14.6); RBC Distribution Width SD 48.3 fl (35.1-43.9); Red Blood Count 4.74 M/mm3 (4.2-5.4); White Blood Count 9.1 K/mm3 (4.4-11.0)
[2021-04-29 18:09] LABS: AST(SGOT) 12 U/L (15-37); Alanine Aminotransfer ALT/SGPT 21 U/L (13-56); Albumin, Serum 3.4 g/dL (3.2-5.0); Alkaline Phosphatase 92 U/L (45-117); Anion Gap 2 (5-15); BUN 11 mg/dL (7-18); Chloride 104 mmol/L (98-107); Creatinine, Serum 0.78 mg/dL (0.55-1.02); EST Glomerular Filtration Rate 82 mL/min (>60); Est Glom Filt Rate - Afr Amer 99 mL/min (>60); Globulin 3.4 g/dL (2.2-4.2); Glucose 95 mg/dL (74-106); Potassium 3.5 mmol/L (3.5-5.1); Protein, Total 6.8 g/dL (6.4-8.2); Sodium Level 138 mmol/L (136-145)
[2021-05-01 09:07] LABS: Immunoglobulin A 163 mg/dL (87-352); Immunoglobulin G 771 mg/dL (586-1602)
[2021-05-01 13:03] LABS: Immunoglobulin M 34 mg/dL (26-217)
== END 2021-04-29 23:59 | disposition short-term general hospital (02) ==
LOC: LAB 16:40
PROVIDERS: PCP Family Medicine; Visit Provider Internal Medicine
DX: Z79.899 Other long term (current) drug therapy (principal)
CPT/HCPCS: 36415; 80053; 82784; 85025

== ENCOUNTER 2021-06-23 12:58 | Outpatient (CLI) | payer OTHER, SELFPAY ==
[2021-06-23 13:33] LABS: Absolute Lymphocyte Count 1.61 X10^3/uL (0.83-4.51); Absolute Neutrophil Count 6.4 X10^3/uL (2.0-7.7); Basophil# 0.02 X10^3/uL; Basophil% 0.2 % (0-1); Eosinophil# 0.07 X10^3/uL; Eosinophils% 0.8 % (0-5); Hematocrit 45.3 % (37-47); Hemoglobin 15.2 g/dL (12.0-15.0); Lymphocyte # 1.61 X10^3/ul (0.83-4.51); Lymphocyte % 18.2 % (19-41); Mean Corp Hgb Conc 33.6 g/dL (32-36); Mean Corpuscular Volume 92.4 fL (81-99); Mean Platelet Vol. 9.4 fl (6.2-12.0); Monocyte# 0.68 X10^3/uL; Monocyte% 7.7 % (0-10); NRBC Flagged by Analyzer 0 % (0-5); Neutrophil # 6.42 X10^3/uL (2.7-7.7); Neutrophil % 72.8 % (47-70); Platelet Count 309 K/mm3 (150-450); RBC Distribution Width CV 14.8 % (11.6-14.6); RBC Distribution Width SD 49.8 fl (35.1-43.9); White Blood Count 8.8 K/mm3 (4.4-11.0)
[2021-06-23 14:02] LABS: AST(SGOT) 14 U/L (15-37); Alanine Aminotransfer ALT/SGPT 21 U/L (13-56); Albumin, Serum 3.6 g/dL (3.2-5.0); Alkaline Phosphatase 100 U/L (45-117); Bilirubin, Direct 0.12 mg/dL (0.00-0.30); Protein, Total 7.6 g/dL (6.4-8.2)
[2021-06-23 14:41] LABS: HIV - WCH Non-Reactive (Nonreactive); Hepatitis B Surface Antibody Non-Reactive; Hepatitis B Surface Antigen Non-Reactive (Nonreactive); Hepatitis C Antibody Non-Reactive (Nonreactive)
[2021-06-26 20:07] LABS: QNTFERON TB Mitogen Value > 10.00 IU/mL (.); QNTFERON TB Nil Value 0.01 IU/mL (.); QNTFERON TB1+ Ag Value 0.01 IU/mL (.); QNTFERON TB2+ Ag Value 0.01 IU/mL (.)
[2021-06-26 23:02] LABS: Hepatitis B Core Ab Total Negative (Negative); QNTIFERON TB Positive Criteria Negative (Negative)
== END 2021-06-23 23:59 | disposition home or self-care (01) ==
LOC: LAB 12:59
PROVIDERS: PCP Family Medicine; Referring Provider Dermatology; Visit Provider Dermatology
DX: Z79.899 Other long term (current) drug therapy (principal); L40.59 Other psoriatic arthropathy; L40.0 Psoriasis vulgaris; L68.0 Hirsutism
CPT/HCPCS: 36415; 80076; 85025; 86480; 86703; 86704; 86706; 86803; 87340

== ENCOUNTER 2021-07-08 12:11 | Outpatient (CLI) | payer OTHER, SELFPAY ==
--- NOTE | 2021-07-08 12:29 | BI_ITS ---
MAMMOGRAPHY - BILATERAL SCREENING REASON FOR EXAM: Female, 51 years old. Routine annual screening examination. PERTINENT HISTORY: Non-contributory. TECHNIQUE: Digital bilateral breast isis (3D mammographic acquisition) in the CC and MLO projections. 2-D mediolateral oblique (MLO) and craniocaudad (CC) views of both breasts were obtained. CAD: Full Field Digital Mammography with Computer Added Detection was performed. COMPARISON: Comparison is made with prior study dated 05/19/2020. FINDINGS: Breast Composition: There are scattered areas of fibroglandular density. There are no dominant masses or suspicious calcifications. Stable small benign-appearing bilateral axillary lymph nodes. No other significant abnormalities are identified. There has been no significant change since the prior study. BI/SCRN MAMM (CAD)W/ISIS BILAT IMPRESSION: Stable bilateral screening mammogram. Yearly follow-up mammogram recommended. (A) ASSESSMENT CATEGORY: BIRADS Category 2: Benign. A letter regarding these results will be sent to the patient by the facility within 30 days. Approximately 10% of breast cancers are not detected by mammography. A normal mammogram should not delay biopsy of a clinically suspicious abnormality. [id number] Electronically Signed: Kilo Bhatt MD at 13:33 EDT ,
== END 2021-07-08 23:59 | disposition home or self-care (01) ==
LOC: OPBI 12:28
PROVIDERS: PCP Family Medicine; Referring Provider Nurse Practitioner Women's Health; Visit Provider Nurse Practitioner Women's Health
DX: Z12.31 Encounter for screening mammogram for malignant neoplasm of breast (principal)
CPT/HCPCS: 77063; 77067

== ENCOUNTER → 2021-11-17 | Outpatient (CLI) | payer OTHER, SELFPAY ==
[2021-11-17 13:34] LABS: Absolute Lymphocyte Count 1.65 X10^3/uL (0.83-4.51); Basophil# 0.02 X10^3/uL; Basophil% 0.2 % (0-1); Eosinophil# 0.12 X10^3/uL; Eosinophils% 1.4 % (0-5); Hematocrit 43.7 % (37-47); Hemoglobin 14.5 g/dL (12.0-15.0); Lymphocyte # 1.65 X10^3/ul (0.83-4.51); Lymphocyte % 19.2 % (19-41); Mean Corp Hgb Conc 33.2 g/dL (32-36); Mean Corpuscular Hgb 31.7 pg (27.0-32.0); Mean Corpuscular Volume 95.6 fL (81-99); Mean Platelet Vol. 9.5 fl (6.2-12.0); Monocyte# 0.78 X10^3/uL; Monocyte% 9.1 % (0-10); NRBC Flagged by Analyzer 0 % (0-5); Neutrophil # 5.96 X10^3/uL (2.7-7.7); Neutrophil % 69.4 % (47-70); Platelet Count 275 K/mm3 (150-450); RBC Distribution Width CV 15.2 % (11.6-14.6); RBC Distribution Width SD 53.1 fl (35.1-43.9); Red Blood Count 4.57 M/mm3 (4.2-5.4); White Blood Count 8.6 K/mm3 (4.4-11.0)
[2021-11-17 13:57] LABS: ALB/GLOB Ratio 0.9 RATIO (0.9-2.4); AST(SGOT) 12 U/L (15-37); Alanine Aminotransfer ALT/SGPT 20 U/L (13-56); Albumin, Serum 3.4 g/dL (3.2-5.0); Alkaline Phosphatase 97 U/L (45-117); Anion Gap 6 (5-15); BUN 13 mg/dL (7-18); BUN/Creat Ratio 22.7 RATIO (10-20); Calcium,Total 8.9 mg/dL (8.5-10.1); Chloride 102 mmol/L (98-107); Creatinine, Serum 0.57 mg/dL (0.55-1.02); EST Glomerular Filtration Rate 117 mL/min (>60); Est Glom Filt Rate - Afr Amer 141 mL/min (>60); Globulin 3.7 g/dL (2.2-4.2); Glucose 105 mg/dL (74-106); Potassium 3.4 mmol/L (3.5-5.1); Protein, Total 7.1 g/dL (6.4-8.2); Sodium Level 139 mmol/L (136-145)
[2021-11-19 09:08] LABS: Immunoglobulin A 162 mg/dL (87-352); Immunoglobulin G 776 mg/dL (586-1602)
[2021-11-19 09:29] LABS: Immunoglobulin M 29 mg/dL (26-217)
== END | disposition home or self-care (01) ==
LOC: LAB 12:39
PROVIDERS: PCP Family Medicine; Referring Provider Internal Medicine; Visit Provider Internal Medicine
DX: Z79.899 Other long term (current) drug therapy (principal)
CPT/HCPCS: 36415; 80053; 82784; 85025

== ENCOUNTER → 2022-03-15 | Outpatient (CLI) | payer OTHER, SELFPAY ==
--- NOTE | 2022-03-15 12:44 | MRI_ITS ---
EXAM: MR HEAD WITHOUT AND WITH INTRAVENOUS CONTRAST CLINICAL INDICATION: MS TECHNIQUE: Multiplanar and multisequence MR images of the brain were obtained without and with intravenous contrast. This report was created using [employer] report generation technology. CONTRAST: IV 23ml Clariscan COMPARISON: MRI brain with and without contrast 03/16/2020. FINDINGS: BRAIN AND EXTRA-AXIAL SPACES: Small nonenhancing T2 and FLAIR hyperintensity in the right posterior periventricular white matter is unchanged. Following IV contrast administration, there are no suspicious enhancing lesions intra-axially and extra-axially. No other focal signal abnormalities throughout the brain parenchyma. No intra- or extra-axial hemorrhage. No evidence of acute infarct. No intracranial mass or mass effect. There is preservation of the pagan/white matter interface. Posterior fossa structures are unremarkable. No hydrocephalus. Basal cisterns are patent. SELLA: Unremarkable. Normal sella turcica, pituitary gland, infundibular stalk, optic chiasm and hypothalamus. AUDITORY SYSTEM: Unremarkable. The internal auditory canals are patent. BONES/JOINTS: Unremarkable. No discrete lytic or blastic abnormalities. SINUSES: Unremarkable as visualized. Clear. MASTOID AIR CELLS: Unremarkable as visualized. Clear. ORBITS: Unremarkable as visualized. Both globes, extraocular muscles, optic nerves and retrobulbar fat appear unremarkable. VASCULATURE: Unremarkable as visualized. Normal flow voids in the major intracranial circulation. OPINION: 1. No MRI evidence of any active enhancing MS plaque. 2. Solitary T2 FLAIR hyperintensity focus in the right posterior periventricular white matter is atypical for multiple sclerosis as this is a solitary white matter lesion. This may represent nonspecific gliosis or microvascular disease. Electronically Signed: Lionel Tierney MD at 16:17 EST , MRI/Brain W/WO Contrast IMPRESSION: undefined
--- NOTE | 2022-03-15 12:44 | MRI_ITS ---
STUDY: MRI CERVICAL SPINE WITH AND WITHOUT CONTRAST REASON FOR EXAM: Female, 52 years old. MS TECHNIQUE: Standardized fat and water weighted pulse sequences were obtained in the sagittal and axial following administration of IV 23ml Clariscan. Motion limited exam. COMPARISON: MR cervical spine March 16, 2020 FINDINGS: Normal foramen magnum and brainstem-cervical cord junction. Normal craniovertebral junction. Normal anterior atlantoaxial articulation. Normal odontoid process. Normal cervical lordosis. Normal vertebral bodies and posterior osseous elements. C2-3: Normal endplates. Normal disc height, signal and morphology. Normal central canal and intervertebral neural foramina. C3-4: Normal endplates. Normal disc height, signal and morphology. Normal central canal and intervertebral neural foramina. C4-5: Normal endplates. Normal disc height, signal and morphology. Normal central canal and intervertebral neural foramina. C5-6: Broad-based posterior disc marginal osteophyte appears unchanged.. Normal disc height, signal and morphology. 7 mm central canal and intervertebral neural foramina. C6-7: Normal endplates. Normal disc height, signal and morphology. Normal central canal and intervertebral neural foramina. C7-T1: Normal endplates. Normal disc height, signal and morphology. Normal central canal and intervertebral neural foramina. Normal cervical cord. Normal visualized soft tissue structures. MRI/Spine Cervical W/WO Contrast IMPRESSION: Mild spinal stenosis due to a small broad-based posterior disc marginal osteophyte at C5-6 unchanged. No definite demyelinating plaques although sensitivity limited due to motion. Electronically Signed: Garfield Martinez MD at 23:56 EST ,
== END | disposition home or self-care (01) ==
PROVIDERS: PCP Family Medicine
DX: G35 Multiple sclerosis (principal)
CPT/HCPCS: 70553; 72156; A9575

== ENCOUNTER → 2022-06-09 | Outpatient (CLI) | payer OTHER, SELFPAY | END | disposition home or self-care (01) | LOC: LABSPEC 08:55 | PROVIDERS: PCP Family Medicine; Visit Provider Family Medicine | DX: R10.9 Unspecified abdominal pain (principal) | CPT/HCPCS: 87086; 87088 ==

== ENCOUNTER → 2022-06-14 | Outpatient (CLI) | payer OTHER, SELFPAY ==
[2022-06-14 17:31] LABS: Absolute Lymphocyte Count 1.02 X10^3/uL (0.83-4.51); Absolute Neutrophil Count 8.5 X10^3/uL (2.0-7.7); Basophil# 0.01 X10^3/uL; Basophil% 0.1 % (0-1); Hematocrit 46.1 % (37-47); Hemoglobin 15.1 g/dL (12.0-15.0); Lymphocyte # 1.02 X10^3/ul (0.83-4.51); Lymphocyte % 10.4 % (19-41); Mean Corp Hgb Conc 32.8 g/dL (32-36); Mean Corpuscular Hgb 30.6 pg (27.0-32.0); Mean Corpuscular Volume 93.3 fL (81-99); Mean Platelet Vol. 9.9 fl (6.2-12.0); Monocyte# 0.25 X10^3/uL; Monocyte% 2.5 % (0-10); NRBC Flagged by Analyzer 0 % (0-5); Neutrophil # 8.49 X10^3/uL (2.7-7.7); Neutrophil % 86.3 % (47-70); Platelet Count 285 K/mm3 (150-450); RBC Distribution Width CV 14.7 % (11.6-14.6); RBC Distribution Width SD 50.5 fl (35.1-43.9); Red Blood Count 4.94 M/mm3 (4.2-5.4); White Blood Count 9.8 K/mm3 (4.4-11.0)
[2022-06-14 18:26] LABS: ALB/GLOB Ratio 0.9 RATIO (0.9-2.4); AST(SGOT) 11 U/L (15-37); Alanine Aminotransfer ALT/SGPT 22 U/L (13-56); Albumin, Serum 3.5 g/dL (3.2-5.0); Alkaline Phosphatase 94 U/L (45-117); Anion Gap 7 (5-15); BUN 17 mg/dL (7-18); BUN/Creat Ratio 20.8 RATIO (10-20); Calcium,Total 9.3 mg/dL (8.5-10.1); Chloride 101 mmol/L (98-107); Creatinine, Serum 0.82 mg/dL (0.55-1.02); EST Glomerular Filtration Rate 78 mL/min (>60); Est Glom Filt Rate - Afr Amer 94 mL/min (>60); Globulin 3.8 g/dL (2.2-4.2); Glucose 176 mg/dL (74-106); Potassium 3.6 mmol/L (3.5-5.1); Protein, Total 7.3 g/dL (6.4-8.2); Sodium Level 136 mmol/L (136-145)
[2022-06-16 04:07] LABS: Immunoglobulin A 171 mg/dL (87-352); Immunoglobulin G 900 mg/dL (586-1602)
[2022-06-16 08:29] LABS: Immunoglobulin M 38 mg/dL (26-217)
== END | disposition home or self-care (01) ==
PROVIDERS: PCP Family Medicine
DX: Z79.899 Other long term (current) drug therapy (principal)
CPT/HCPCS: 36415; 80053; 82784; 82785; 85025

== ENCOUNTER → 2022-10-09 | Outpatient (CLI) | payer OTHER, SELFPAY ==
[2022-10-09 11:59] LABS: Absolute Lymphocyte Count 1.59 X10^3/uL (0.83-4.51); Absolute Neutrophil Count 6.4 X10^3/uL (2.0-7.7); Basophil# 0.03 X10^3/uL; Basophil% 0.3 % (0-1); Eosinophil# 0.22 X10^3/uL; Eosinophils% 2.4 % (0-5); Hematocrit 42.5 % (37-47); Hemoglobin 13.7 g/dL (12.0-15.0); Lymphocyte # 1.59 X10^3/ul (0.83-4.51); Lymphocyte % 17.7 % (19-41); Mean Corp Hgb Conc 32.2 g/dL (32-36); Mean Corpuscular Hgb 30.4 pg (27.0-32.0); Mean Corpuscular Volume 94.2 fL (81-99); Mean Platelet Vol. 9.7 fl (6.2-12.0); Monocyte# 0.73 X10^3/uL; Monocyte% 8.1 % (0-10); NRBC Flagged by Analyzer 0 % (0-5); Neutrophil # 6.37 X10^3/uL (2.7-7.7); Neutrophil % 70.8 % (47-70); Platelet Count 248 K/mm3 (150-450); RBC Distribution Width CV 14.7 % (11.6-14.6); Red Blood Count 4.51 M/mm3 (4.2-5.4)
[2022-10-09 12:34] LABS: AST(SGOT) 10 U/L (15-37); Alanine Aminotransfer ALT/SGPT 16 U/L (13-56); Alkaline Phosphatase 98 U/L (45-117); Anion Gap 2 (5-15); BUN 9 mg/dL (7-18); BUN/Creat Ratio 13.6 RATIO (10-20); Bilirubin, Direct 0.09 mg/dL (0.00-0.30); Calcium,Total 8.8 mg/dL (8.5-10.1); Chloride 109 mmol/L (98-107); Creatinine, Serum 0.66 mg/dL (0.55-1.02); EST Glomerular Filtration Rate 98 mL/min (>60); Est Glom Filt Rate - Afr Amer 119 mL/min (>60); Globulin 3.6 g/dL (2.2-4.2); Glucose 105 mg/dL (74-106); Potassium 3.6 mmol/L (3.5-5.1); Protein, Total 6.6 g/dL (6.4-8.2); Sodium Level 142 mmol/L (136-145)
[2022-10-12 10:09] LABS: Immunoglobulin A 136 mg/dL (87-352); Immunoglobulin E 10 IU/mL (6-495); Immunoglobulin G 697 mg/dL (586-1602); Immunoglobulin M 25 mg/dL (26-217); QNTFERON TB Mitogen Value > 10.00 IU/mL (.); QNTFERON TB Nil Value 0 IU/mL (.); QNTFERON TB1+ Ag Value 0.01 IU/mL (.); QNTFERON TB2+ Ag Value 0.01 IU/mL (.); QNTIFERON TB Positive Criteria Negative (Negative)
== END | disposition home or self-care (01) ==
PROVIDERS: PCP Family Medicine; Referring Provider Internal Medicine; Visit Provider Dermatology
DX: L40.0 Psoriasis vulgaris (principal); L40.59 Other psoriatic arthropathy; Z79.899 Other long term (current) drug therapy
CPT/HCPCS: 36415; 80048; 80076; 82784; 82785; 85025; 86480

== ENCOUNTER → 2023-01-16 | Outpatient (CLI) | payer OTHER, SELFPAY ==
[2023-01-16 17:48] LABS: Absolute Neutrophil Count 4.2 X10^3/uL (2.0-7.7); Basophil# 0.03 X10^3/uL; Basophil% 0.5 % (0-1); Eosinophil# 0.18 X10^3/uL; Eosinophils% 2.8 % (0-5); Hemoglobin 14.4 g/dL (12.0-15.0); Lymphocyte % 23.1 % (19-41); Mean Corpuscular Hgb 29.4 pg (27.0-32.0); Mean Platelet Vol. 10.3 fl (6.2-12.0); Monocyte# 0.52 X10^3/uL; NRBC Flagged by Analyzer 0 % (0-5); Neutrophil # 4.23 X10^3/uL (2.7-7.7); Neutrophil % 65.1 % (47-70); Platelet Count 253 K/mm3 (150-450); RBC Distribution Width CV 15.1 % (11.6-14.6); RBC Distribution Width SD 50.8 fl (35.1-43.9); Red Blood Count 4.89 M/mm3 (4.2-5.4); White Blood Count 6.5 K/mm3 (4.4-11.0)
[2023-01-16 18:38] LABS: ALB/GLOB Ratio 0.9 RATIO (0.9-2.4); AST(SGOT) 9 U/L (15-37); Alanine Aminotransfer ALT/SGPT 17 U/L (13-56); Albumin, Serum 3.4 g/dL (3.2-5.0); Alkaline Phosphatase 104 U/L (45-117); Anion Gap 5 (5-15); BUN 10 mg/dL (7-18); BUN/Creat Ratio 18.8 RATIO (10-20); Calcium,Total 8.9 mg/dL (8.5-10.1); Chloride 106 mmol/L (98-107); Creatinine, Serum 0.53 mg/dL (0.55-1.02); EST Glomerular Filtration Rate 127 mL/min (>60); Est Glom Filt Rate - Afr Amer 153 mL/min (>60); Globulin 3.7 g/dL (2.2-4.2); Glucose 108 mg/dL (74-106); Potassium 3.6 mmol/L (3.5-5.1); Protein, Total 7.1 g/dL (6.4-8.2); Sodium Level 140 mmol/L (136-145)
[2023-01-20 05:08] LABS: HEPATITIS B SURFACE AG Negative (Negative); Hep C Antibodies Non Reactive (Non Reactive); Hepatitis A IgM Antibody Negative (Negative); Hepatitis B Core AB IgM Negative (Negative); Immunoglobulin A 170 mg/dL (87-352); Immunoglobulin E 13 IU/mL (6-495); Immunoglobulin G 887 mg/dL (586-1602); Immunoglobulin M 38 mg/dL (26-217); QNTFERON TB Mitogen Value > 10.00 IU/mL (.); QNTFERON TB Nil Value 0.05 IU/mL (.); QNTFERON TB1+ Ag Value 0.16 IU/mL (.); QNTFERON TB2+ Ag Value 0.12 IU/mL (.); QNTIFERON TB Positive Criteria Negative (Negative)
== END | disposition home or self-care (01) ==
PROVIDERS: PCP Family Medicine; Referring Provider Family Medicine; Visit Provider Internal Medicine
DX: G35 Multiple sclerosis (principal)
CPT/HCPCS: 36415; 80053; 80074; 82784; 82785; 85025; 86480

== ENCOUNTER → 2023-03-06 | Outpatient (CLI) | payer OTHER, SELFPAY ==
--- NOTE | 2023-03-06 12:51 | VDLE_ITS ---
Reason For Study: localized edema, pain RIGHT CFV is compressible, spontaneous, phasic, competent and demonstrates normal augmentation. FV is compressible, spontaneous, phasic, competent and demonstrates normal augmentation. POP V is compressible, spontaneous, phasic, competent and demonstrates normal augmentation. T/P Trunk is compressible. PTV is compressible. RT PerV is compressible. SFJ is competent and measures .88 cm. GSV proximal thigh measures .47 x .52 cm. GSV at knee measures .49 x .52 cm. GSV INCOMPETENT throughout for greater than 0.5 seconds. SSV proximal calf is competent and measures .23 x .26 cm. ASV at knee is INCOMPETENT for greater than 0.5 seconds and measures .28 x .29 cm. ASV proximal calf is INCOMPETENT for greater than 0.5 seconds and measures .27 x .29 cm. Hypoechoic area behind the knee measuring 2.5 x 1.04 cm. Area is nonvascular. Procedure This is a venous duplex using B-mode, color flow and spectral Doppler. Exam performed in department. The exam was diagnostic. VL/Venous Duplex US, Unilateral Interpretation Summary Deep veins of the right lower extremity are patent and compressible segmentally . There is no evidence of right lower extremity deep vein thrombosis. The right great sapheno us vein appears patent and compressible segmentally. Positive for reflux in the right great saphenous vein, accessory saphenous vein . Hypoechoic area right popliteal fossa measuring 2.5 x 1.04 cm. Area is nonvascu lar. Ordering Physician: Aishwarya Landrum Performed By: Juan Daniel Vieira RVT
== END | disposition home or self-care (01) ==
LOC: CVS 12:50
PROVIDERS: PCP Family Medicine; Referring Provider Physician Assistant; Visit Provider Physician Assistant
DX: R60.0 Localized edema (principal); M79.604 Pain in right leg
CPT/HCPCS: 93971

== ENCOUNTER → 2023-06-25 | Outpatient (CLI) | payer OTHER, SELFPAY ==
[2023-06-25 17:44] LABS: Absolute Lymphocyte Count 1.76 X10^3/uL (0.83-4.51); Absolute Neutrophil Count 6.6 X10^3/uL (2.0-7.7); Basophil# 0.05 X10^3/uL; Basophil% 0.5 % (0-1); Eosinophil# 0.15 X10^3/uL; Eosinophils% 1.6 % (0-5); Hematocrit 47.2 % (37-47); Hemoglobin 15.3 g/dL (12.0-15.0); Lymphocyte # 1.76 X10^3/ul (0.83-4.51); Lymphocyte % 18.8 % (19-41); Mean Corp Hgb Conc 32.4 g/dL (32-36); Mean Corpuscular Hgb 30.6 pg (27.0-32.0); Mean Corpuscular Volume 94.4 fL (81-99); Mean Platelet Vol. 10.2 fl (6.2-12.0); Monocyte# 0.73 X10^3/uL; Monocyte% 7.8 % (0-10); NRBC Flagged by Analyzer 0 % (0-5); Neutrophil # 6.64 X10^3/uL (2.7-7.7); Neutrophil % 70.8 % (47-70); Platelet Count 246 K/mm3 (150-450); RBC Distribution Width CV 13.8 % (11.6-14.6); RBC Distribution Width SD 47.3 fl (35.1-43.9); White Blood Count 9.4 K/mm3 (4.4-11.0)
[2023-06-25 18:13] LABS: Vitamin B12 286 pg/mL (211-911); Vitamin D,25 Hydroxy 15.8 ng/mL
[2023-06-25 18:16] LABS: ALB/GLOB Ratio 0.9 RATIO (0.9-2.4); AST(SGOT) 14 U/L (15-37); Alanine Aminotransfer ALT/SGPT 17 U/L (13-56); Albumin, Serum 3.4 g/dL (3.2-5.0); Alkaline Phosphatase 106 U/L (45-117); Anion Gap 6 (5-15); BUN 12 mg/dL (7-18); BUN/Creat Ratio 17.9 RATIO (10-20); Calcium,Total 8.6 mg/dL (8.5-10.1); Chloride 106 mmol/L (98-107); Creatinine, Serum 0.67 mg/dL (0.55-1.02); EST Glomerular Filtration Rate 97 mL/min (>60); Est Glom Filt Rate - Afr Amer 117 mL/min (>60); Globulin 3.7 g/dL (2.2-4.2); Glucose 102 mg/dL (74-106); Potassium 3.4 mmol/L (3.5-5.1); Protein, Total 7.1 g/dL (6.4-8.2); Sodium Level 141 mmol/L (136-145); T4 Free Direct 0.88 ng/dL (0.76-1.46); Thyroid Stim Hormone (TSH) 0.99 uIU/mL (0.358-3.74)
--- OUTSIDE RECORDS SUMMARY | 2023-06-25 21:01 | XMS RPT_ITS | CCD ---
Author Name Unknown Address [address] [place] [address] Organization [facility] Care Team Providers Care Trap Setter Name Role Phone Geraldine Covington DO Primary Care Provider TIMUR ALTMAN JR Referring Unavailable GERALDINE COVINGTON Primary Care Unavailable TIMUR ALTMAN JR Referring Unavailable TIMUR ALTMAN JR Attending Unavailable GERALDINE COVINGTON Primary Care Unavailable Medications Completed/Discontinued Medications Medication Drug Class(es) Dates Sig (Normalized) Sig (Original) apremilast 30 mg oral tablet (1 source) take 1 tablet by edwin th twice daily apremilast (OTEZLA) 30 mg tablet Take 30 mg by mouth twice daily. 0 Active Problems Active Problems Problem Classification Problem Date Documented Da te Episodic/Chronic Mood disorders (2 sources) Recurrent major depression; Translations: [Major depressive disorder, recurrent, unspecified] Onset: 12-25-2016 12-25-2016 Chronic Multiple sclerosis (2 sources) Multiple sclerosis; Translations: [Multiple sclerosis] Onset: 12-25-2016 12-25-2016 Chronic Residual codes; unclassified (2 sources) Obstructive sleep apnea syndrome; Translations: [Obstructive sleep apnea (adult) (pediatric)] Onset: 12-25-2016 10-28-2020 Chronic Residual codes; unclassified (2 sources) Hypersomnia disorder related to a known organic factor; Translations: [Hypersomnia due to medical condition] Onset: 12-25-2016 12-25-2016 Chronic Residual codes; unclassified (1 source) Hypersomnia, unspecified; Translations: [Hypersomnia] Onset: 11-06-2022 Chronic Past or Other Problems Problem Classification Problem Date Documented Date Episodic/Chronic Genitourinary symptoms and ill-defined conditions (2 sources) Delay when starting to pass urine; Translations: [Hesitancy of micturition] Onset: 05-20-2018 05-20-2018 Episodic Headache; including migraine (2 sources) Headache; Translations: [Chronic nonintractable headache] Onset: 12-25-2016 12-25-2016 Episodic Malaise and fatigue (2 sources) Malaise and fatigue; Translations: [Other malaise] Onset: 12-25-2016 12-25-2016 Episodic Spondylosis; intervertebral disc disorders; other back problems (4 sources) Spinal stenosis of lumbar region; Translations: [Spinal stenosis, lumbar region without neurogenic claudication] Onset: 12-25-2016 12-25-2016 Episodic Results Test Name Value Interpretation Reference Range Facil ity Encounters Encounter Date Encounter Type Care Provider Facility Start: 11-06-2022 End: 11-07-2022 ambulatory TIMUR ALTMAN JR Facility:[facility] Start: 10-09-2022 Telephone encounter [facility] Work Phone: Neurology Plan of Treatment Date Care Activity Detail Author Start: 12-15-2022 Influenza vaccination INFLUENZA (Sea son Ended) [facility] Start: 01-01-2021 COVID-19 VACCINE (3 - Moderna risk series) COVID-19 VACCINE (3 - Moderna risk series) [facility] Start: 12-31-2020 DIABETES SCREEN DIABETES SCREEN [facility] Start: 11-29-2020 COVID-19 VACCINE (2 - Moderna series) COVID-19 VACCINE (2 - Moderna series) [facility] Start: 01-13-2018 SHINGRIX VACCINE (1 of 2) SHINGRIX V ACCINE (1 of 2) [facility] Start: 01-13-2013 COLOGUARD (FIT-DNA) COLOGUARD (FIT-D NA) [facility] Start: 01-13-2013 Colonoscopy COLONOSCOPY [facility] Start: 01-13-2013 COLORECTAL CANCER SCREENING COLORECTAL CANCER SCREENING [facility] Start: 01-13-[address] COLONOGRAPHY [facility] Start: 01-13-2013 FECAL OCCULT BLOOD FECAL OCCULT BLOO D [facility] Start: 01-13-2013 LIPID SCREEN LIPID SCREEN [facility] Start: 01-13-2013 SIGMOIDOSCOPY SIGMOIDOSCOPY [facility] Start: 2008 Mammography MAMMOGRAM [facility] Start: 01-13-1998 HPV TESTING HPV TESTING [facility] Start: 01-13-1989 PAP TESTING PAP TESTING [facility] Start: 01-13-1987 SHINGRIX VACCINE (1 of 2) SHINGRIX V ACCINE (1 of 2) [facility] Start: 01-13-1987 Urine microalbumin profile DTAP,TDAP ,TD (1 - Tdap) [facility] Start: 01-13-1986 HEPATITIS C SCREENING HEPATITIS C SC REENING [facility] Start: 01-13-1986 HIV SCREENING HIV SCREENING [facility] Start: 01-13-1974 PNEUMOCOCCAL (1 - PCV) PNEUMOCOCCAL (1 - PCV) [facility] Start: 1970 HEPATITIS B (1 of 3 - 3-dose series) HEPATITIS B (1 of 3 - 3-dose series) [facility] Immunizations Immunization Date Immunization Notes Care Provider Kaden coker 12-25-2016 influenza, seasonal, injectable 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 Work Phone: [facility] Payers Date Payer Category Payer Unknown MMO MMO MHS xxxx [id number] 2022-Present [phone] [address] [address] [place] [address] Indemnity [id number] 2022 Unknown [id number] Social History Date Type Detail Facility Start: 06-25-2017 End: 08-11-2022 Tobacco smoking status NHIS Smokes tobacco daily [facility] History of tobacco use Cigarette Smoker C [facility] Start: 06-25-2017 End: 08-11-2022 Cigarettes smoked current (pack per day) - Reported 1 [facility] Start: 06-25-2017 End: 08-11-2022 Tobacco use and exposure Smokeless tobacco non-user [facility] Start: 11-30-2020 End: 08-11-2022 Alcohol intake Current non-drinker of alcohol (finding) [facility] Start: 1970 Sex Assigned At Female [facility] Work Phone: Note 10-09-2022 Telephone Encounter - Leila Quach - 10/09/2022 1:14 PM EDT Note Date & Type Note Facility 10-09-2022 Miscellaneous Notes Formattin g of this note might be different from the original. The pt was contacted in regards to medications that may alter MSLT test results. Pt on Modafinil, Lyrica, and Wellbutrin. Pt stated that she was not given any instructions per Dr. Altman. She was instructed to reach out to Dr. Altman to see if he had any special medication instructions. documented in this encounter [facility] Progress note 08-11-2022 Note Date & Type Note Facility 08-11-2022 Note HNO ID: [id number] Author: Timur Altman Jr., MD Service: ? Author Type: Physician Type: Progress Notes Filed: 08/11/2022 5:52 PM Note Text: ESTABLISHED PATIENT VISIT CHIEF COMPLAINT: Follow Up HISTORY OF PRESENT ILLNESS: Anna Fernandes is a 52 year old female, BMI 38.84 kg/m2 with a PMH significant for and per last office visit of 11/01/20: 1. Spinal stenosis of lumbar region without neurogenic claudication - ICD9: 724.02, ICD10: M48.061 (primary diagnosis) Pain in lower extremities and lower back worsening. Appears to follow L5 distribution shea. Prior therapy provided no relief. +Str leg raise. Known history of lumbar stenosis (reported) that may be progressing. Less likely but still consider lumbar cord demyelinating lesion given history of MS. Will get MRI L spine to further evaluate. 2. ALLEN (obstructive sleep apnea) - ICD9: 327.23, ICD10: G47.33 Decreased compliance of late. Encouraged improved compliance. Explained means of adjusting humidifier that should help with nasal congestion. Advised on need to clean and replace equipment more regularly. Advised patent to check with DME and [facility] to determine if her machine is one of recall. If so, and given mild ALLEN, should stop use until new machine available. Note, pt on Nuvigil as well but Rx'd by Dr. Singletary at [facility]. 3. Multiple sclerosis (HCC) - ICD9: 340, ICD10: G35 Encouraged follow up with either [facility], or [facility] if patient is wanting second opinion. 4. Anxiety - ICD9: 300.00, ICD10: F41.9 Persists. While initially states stable, at end of visit indicating she would benefit from med. Will place on trial of Wellbutrin XL 150mg daily. SE and ADRs d/w pt. Per note of Paz Young CNP who followed up on MRI L spine on 11/30/20: M48.061 Spinal stenosis, lumbar region, without neurogenic claudication (primary encounter diagnosis) M54.5 Lumbar pain Comment: Pain in low back radiating into hips and down the R leg. Did go to PT in the past without relief of symptoms. MRI of lumbar spine completed and showing mild multilevel degenerative changes as well as mild chronic compression deformity at L1. Previously was referred to spine and pain management, however, states she was unable to schedule appointments. Consults reordered at this time. Pt on Modafinil but provided by [facility] - Dr. Kitty Singletary. Pt states that Nuvigil stopped working. Then changed to Provigil but it is doing nothing. Then patient asked if she could start Adderall and then referred back to me to evaluate if appropriate. Pt states in recent year, increased sleepiness, and can just fall over and be asleep. 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 If stressed it is real bad. States when she feels she is in a dream, and then feels like she is screaming for something to get off of her and she cannot move. States last time it talked to her and said there is no god . States dreaming more, but typically associated with patient being stressed. Pt was using PAP regularly, then quit, then started using it again. Mild ALLEN in 2018. Uncertain if pt was truly using PAP as pt then states she was letting her sig other use it for his ALLEN (thus, would still show compliance). For MS on Ocrevus. No plan on changing meds over the next year. Pt feels like it is helping. Also more recent diagnosis of psoriatic arthritis. No longer on Wellbutrin for anxiety - states it is fine. Bedtime is about MN and waking about 7AM. Most nights gets at least 7 hours of sleep. Significant other reports snoring. No definite parasomnias. +Dry mouth in the AM. No headaches in the AM. Not taking naps during the day intentionally - falling asleep. Only sedating med pt on is Lyrica 150mg TID. REVIEW OF SYSTEMS GENERAL:No weight loss, malaise or fevers. HEENT:Negative for frequent or significant headaches, No changes in hearing or vision, no nose bleeds or other nasal problems NECK:Negative for lumps, goiter, pain and significant neck swelling RESPIRATORY: Negative for cough, wheezing or shortness of breath. CARDIOVASCULAR: Negative for chest pain, leg swelling or palpitations. GASTROINTESTINAL: Negative for abdominal discomfort, blood in stools or black stools or change in bowel habits GENITOURINARY: No history of dysuria, frequency or incontinence MUSCULOSKELETAL: Chronic low back pain. NEUROLOGIC:Negative for focal numbness or weakness, headaches and dizziness or syncope, vision changes, speech/languag changes - EXCEPT that as per HPI above. SKIN:Negative for lesions, rash, and itching. LAB/IMAGING: Those performed since patient's last visit have been reviewed. WBC (thou/cmm) Date Value 12/31/2017 7.30 RBC (mil/cmm) Date Value 12/31/2017 4.97 HGB (g/dL) Date Value 12/31/2017 15.1 Hematocrit (%) Date Value 12/31/2017 45.9 (H) MCV (fl) Date Value 12/31/2017 92.4 MCH (pg) Date Value 12/31/2017 30.4 MCHC (%) D (more content not included)... [facility] Note 07-27-2022 Telephone Encounter - Lou Fink [facility] - 07/27/2022 10:44 AM EDTTelephone Encounter - Lou Fink [facility] - 07/26/2022 5:05 PM EDT Note Date & Type Note Facility 07-27-2022 Miscellaneous Notes Formattin g of this note might be different from the original. Left the patient another voice message about the canceled appointment. Gave new appointment information and mailed appointment reminder. Left the patient multiple messages that her appointment for 07/27/22 has been canceled. documented in this encounter [facility] Summary Purpose Family History No Family History Records FoundNo Family History Records FoundNo Family History Records Found Advance Directives No Advanced Directives Records FoundNo Advanced Directives Records FoundNo Advanced Directives Records Found Additional Source Comments INFORMATION SOURCE (unrecogn ized section and content) DATE CREATED AUTHOR AUTHOR'S ORGANIZ ATION 09/22/2019 [facility] DATE CREATED AUTHOR AUTHOR'S ORGANIZ ATION 11/10/2022 [facility] Source Comments (unrecognize d section and content) In the event this informatio n is protected by the Federal Confidentiality of Alcohol and Drug Abuse Patient Records regulations: The Federal rules restrict any use of the information to criminally investigate or prosecute any alcohol or drug abuse patient.[facility] event this information is protected by the Federal Confidentiality of Alcohol and Drug Abuse Patient Records regulations: The Federal rules restrict any use of the information to criminally investigate or prosecute any alcohol or drug abuse patient.[facility] Reason for Visit (unrecogniz ed section and content) Reason Comments Medication Question The pt was contacted in regards to medications that may alter MSLT test results. Care Teams (unrecognized sec tion and content) Trap Setter Relationship Specialty Start Date End Date Geraldine Covington DO [address] [place] [address] PCP - General Family Medicine 05/20/18 FOR RECORDS PERTAINING TO PATIENTS WHO ARE OR HAVE BEEN ENROLLED IN A CHEMICAL DEPENDENCY/SUBSTANCEABUSE PROGRAM, SOME INFORMATION MAY BE OMITTED. This clinical summary was aggregated from multiple sources. Caution should be exercised in using it in the provision of clinical care. This summary normalizes information from multiple sources, and as a consequence, information in this document may materially change the coding, format and clinical context of patient data. In addition, data may be omitted in some cases. CLINICAL DECISIONS SHOULD BE BASED ON THE PRIMARY CLINICAL RECORDS. [facility] [employer] [facility]. provides no warranty or guarantee of the accuracy or completeness of information in this document.
== END | disposition home or self-care (01) ==
LOC: BFHLAB 16:02
PROVIDERS: PCP Family Medicine; Visit Provider Family Medicine
DX: Z00.00 Encounter for general adult medical examination without abnormal findings (principal); R53.83 Other fatigue
CPT/HCPCS: 36415; 80053; 82306; 82533; 82607; 84439; 84443; 85025

== ENCOUNTER → 2023-06-27 | Outpatient (CLI) | payer OTHER, SELFPAY ==
--- OUTSIDE RECORDS SUMMARY | 2023-06-27 10:39 | XMS RPT_ITS | CCD ---
Author Name Unknown Address [address] [place] [address] Organization [facility] Care Team Providers Care [facility] Owner Name Role Phone Geraldine Covington DO Primary [...] 11-06-2022 End: 11-07-2022 ambulatory TIMUR ALTMAN JR Facility:[facility] Start: 10-09-2022 Telephone encounter [facility] Main Work Phone: Neurology Plan of Treatment Date Care Activity Detail Author Start: 12-15-2022 Influenza vaccination INFLUENZA (Sea son Ended) [facility] Start: 01-01-2021 COVID-19 VACCINE (3 - Moderna risk series) COVID-19 VACCINE (3 - Moderna risk series) [facility] Start: 12-31-2020 DIABETES SCREEN DIABETES SCREEN [facility] Start: 11-29-2020 COVID-19 VACCINE (2 - Moderna series) COVID-19 VACCINE (2 - Moderna series) [facility] Start: 01-13-2018 SHINGRIX VACCINE (1 of 2) SHINGRIX V ACCINE (1 of 2) [facility] Start: 01-13-2013 COLOGUARD (FIT-DNA) COLOGUARD (FIT-D NA) [facility] Start: 01-13-2013 Colonoscopy COLONOSCOPY [facility] Start: 01-13-2013 COLORECTAL CANCER SCREENING COLORECTAL CANCER SCREENING [facility] Start: 01-13-[address] COLONOGRAPHY [facility] Start: 01-13-2013 FECAL OCCULT BLOOD FECAL OCCULT BLOO D [facility] Start: 01-13-2013 LIPID SCREEN LIPID SCREEN [facility] Start: 01-13-2013 SIGMOIDOSCOPY SIGMOIDOSCOPY [facility] Start: 2008 Mammography MAMMOGRAM [facility] Start: 01-13-1998 HPV TESTING HPV TESTING [facility] Start: 01-13-1989 PAP TESTING PAP TESTING [facility] Start: 01-13-1987 SHINGRIX VACCINE (1 of 2) SHINGRIX V ACCINE (1 of 2) [facility] Start: 01-13-1987 Urine microalbumin profile DTAP,TDAP ,TD (1 - Tdap) [facility] Start: 01-13-1986 HEPATITIS C SCREENING HEPATITIS C SC REENING [facility] Start: 01-13-1986 HIV SCREENING HIV SCREENING [facility] Start: 01-13-1974 PNEUMOCOCCAL (1 - PCV) PNEUMOCOCCAL (1 - PCV) 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 Payers Date Payer Category Payer Unknown MMO MMO [employer]HS xxxx [id number] 2022-Present [phone] [address] [address] [place] [address] Indemnity [id number] 2022 Unknown [id number] Social History Date Type Detail Facility Start: 06-25-2017 End: 08-11-2022 Tobacco smoking status NHIS Smokes tobacco daily [facility] History of tobacco use Cigarette Smoker C [facility] Start: 06-25-2017 End: 08-11-2022 Cigarettes smoked current (pack per day) - Reported [address] [facility] Start: 06-25-2017 End: 08-11-2022 Tobacco use and exposure Smokeless tobacco non-user [facility] Start: 11-30-2020 End: 08-11-2022 Alcohol intake Current non-drinker of alcohol (finding) [facility] Start: 1970 Sex Assigned At Female [facility] Work Phone: Note 10-09-2022 Telephone Encounter [...] special medication instructions. documented in this encounter [facility] Progress note 08-11-2022 Note Date & Type Note Facility 08-11-2022 Note HNO ID: [id number] Author: Timur Altman Jr., MD Service: ? [...] of recall. If so, and given mild ALLNE, should stop use until new machine available. Note, pt on Nuvigil as well but Rx'd by Dr. Singletary at [facility]. 3. Multiple sclerosis (HCC) - ICD9: 340, ICD10: G35 Encouraged follow up with either [facility], or [facility] if patient is wanting second opinion. 4. [...] time. Pt on Modafinil but provided by [facility] - Dr. Kitty Singletary. Pt states that [...] MCHC (%) D (more content not included)... [facility] Note 07-27-2022 Telephone Encounter - Lou Fink [facility] - 07/27/2022 10:44 AM EDTTelephone Encounter - Lou Fink [facility] - 07/26/2022 5:05 PM EDT Note Date & Type Note Facility 07-27-2022 Miscellaneous Notes Formattin g of this note might be different from the original. Left the patient another voice message about the canceled appointment. Gave new appointment information and mailed appointment reminder. Left the patient multiple messages that her appointment for 07/27/22 has been canceled. documented in this encounter [facility] Summary Purpose Family History No Family History Records FoundNo Family History Records FoundNo Family History Records Found Advance Directives No Advanced Directives Records FoundNo Advanced Directives Records FoundNo Advanced Directives Records Found Additional Source Comments INFORMATION SOURCE (unrecogn ized section and content) DATE CREATED AUTHOR AUTHOR'S ORGANIZ ATION 09/22/2019 [facility] DATE CREATED AUTHOR AUTHOR'S ORGANIZ ATION 11/10/2022 [facility] Source Comments (unrecognize d section and content) In the event this informatio n is protected by the Federal Confidentiality of Alcohol and Drug Abuse Patient Records regulations: The Federal rules restrict any use of the information to criminally investigate or prosecute any alcohol or drug abuse patient[facility] the event this information is protected by the Federal Confidentiality of Alcohol and Drug Abuse Patient Records regulations: The Federal rules restrict any use of the information to criminally investigate or prosecute any alcohol or drug abuse patient.[facility] Reason for Visit (unrecogniz ed section and content) Reason Comments Medication Question The pt was contacted in regards to medications that may alter MSLT test results. Care Teams (unrecognized sec tion and content) [facility] Owner Relationship Specialty Start Date End Date Geraldine Covington DO [address] [facility] [address] [address] [place] [address] PCP - General Family Medicine 05/20/18 FOR [...] BE BASED ON THE PRIMARY CLINICAL RECORDS. [facility] [employer] [facility]. provides no warranty or guarantee of the accuracy or completeness of information in this document.
== END | disposition home or self-care (01) ==
LOC: BFHLAB 09:28
PROVIDERS: PCP Family Medicine; Visit Provider Family Medicine
DX: Z00.00 Encounter for general adult medical examination without abnormal findings (principal); R79.89 Other specified abnormal findings of blood chemistry
CPT/HCPCS: 36415; 82533

== ENCOUNTER → 2023-07-09 | Outpatient (CLI) | payer OTHER, SELFPAY ==
--- NOTE | 2023-07-09 14:30 | RAD_ITS ---
EXAM: XR LUMBOSACRAL SPINE, 4 OR 5 VIEWS CLINICAL INDICATION: LBP RIGHT TECHNIQUE: 5 total views. COMPARISON: No relevant prior studies available. FINDINGS: VERTEBRAE: Mild spondylosis at multiple levels. Preserved vertebral body height. No fracture. Preservation of the normal lumbar lordosis. No significant facet arthropathy. SACRUM/COCCYX: Intact sacral neural foramen and SI joints. DISC SPACES: At least moderate apparent disc space narrowing at T12-L3, possibly accentuated by mild rotation. GASTROINTESTINAL TRACT: Moderate stool in the transverse colon. Included bowel gas pattern is non-obstructive. RAD/L/S Spine Min 4 Views IMPRESSION: At least mild multilevel degenerative changes. The usual lordotic curvature is well-maintained. Electronically Signed: Sivan Fofana MD at 8:37 EDT ,
[2023-07-09 15:13] LABS: Absolute Lymphocyte Count 1.57 X10^3/uL (0.83-4.51); Absolute Neutrophil Count 4.5 X10^3/uL (2.0-7.7); Basophil# 0.03 X10^3/uL; Basophil% 0.4 % (0-1); Eosinophil# 0.19 X10^3/uL; Eosinophils% 2.8 % (0-5); Hematocrit 46.4 % (37-47); Hemoglobin 15.3 g/dL (12.0-15.0); Lymphocyte # 1.57 X10^3/ul (0.83-4.51); Mean Corpuscular Hgb 30.8 pg (27.0-32.0); Mean Corpuscular Volume 93.5 fL (81-99); Mean Platelet Vol. 10.1 fl (6.2-12.0); Monocyte# 0.53 X10^3/uL; Monocyte% 7.7 % (0-10); NRBC Flagged by Analyzer 0 % (0-5); Neutrophil # 4.49 X10^3/uL (2.7-7.7); Neutrophil % 65.7 % (47-70); Platelet Count 230 K/mm3 (150-450); RBC Distribution Width CV 13.8 % (11.6-14.6); RBC Distribution Width SD 47.3 fl (35.1-43.9); Red Blood Count 4.96 M/mm3 (4.2-5.4); White Blood Count 6.8 K/mm3 (4.4-11.0)
[2023-07-09 15:51] LABS: AST(SGOT) 16 U/L (15-37); Alanine Aminotransfer ALT/SGPT 19 U/L (13-56); Albumin, Serum 3.4 g/dL (3.2-5.0); Alkaline Phosphatase 105 U/L (45-117); Anion Gap 3 (5-15); BUN 7 mg/dL (7-18); Calcium,Total 8.8 mg/dL (8.5-10.1); Chloride 108 mmol/L (98-107); Creatinine, Serum 0.54 mg/dL (0.55-1.02); EST Glomerular Filtration Rate 124 mL/min (>60); Est Glom Filt Rate - Afr Amer 151 mL/min (>60); Globulin 3.3 g/dL (2.2-4.2); Glucose 114 mg/dL (74-106); Potassium 3.7 mmol/L (3.5-5.1); Protein, Total 6.7 g/dL (6.4-8.2); Sodium Level 141 mmol/L (136-145)
[2023-07-09 16:09] LABS: HIV - WCH Non-Reactive (Nonreactive)
[2023-07-11 19:07] LABS: HEPATITIS B SURFACE AG Negative (Negative); Hep C Antibodies Non Reactive (Non Reactive); Hepatitis A IgM Antibody Negative (Negative); Hepatitis B Core AB IgM Negative (Negative); QNTFERON TB Mitogen Value > 10.00 IU/mL (.); QNTFERON TB Nil Value 0.04 IU/mL (.); QNTFERON TB1+ Ag Value 0.04 IU/mL (.); QNTFERON TB2+ Ag Value 0.05 IU/mL (.); QNTIFERON TB Positive Criteria Negative (Negative)
== END | disposition home or self-care (01) ==
PROVIDERS: PCP Family Medicine
DX: G35 Multiple sclerosis (principal); R53.82 Chronic fatigue, unspecified; Z79.899 Other long term (current) drug therapy; M54.9 Dorsalgia, unspecified
CPT/HCPCS: 36415; 72100; 72110; 80053; 80074; 85025; 86480; 86703

== ENCOUNTER → 2023-07-11 | Outpatient (CLI) | payer OTHER, SELFPAY ==
--- NOTE | 2023-07-11 06:49 | MRI_ITS ---
STUDY: MRI BRAIN WITH AND WITHOUT CONTRAST REASON FOR EXAM: Female, 53 years old. MS TECHNIQUE: Standardized multiplanar fat and water weighted pulse sequences were obtained. IV 23ml clariscan was administered for the contrast portion of the examination. COMPARISON: 03/15/2022 FINDINGS: Normal size of the ventricles and extra-axial spaces for the patient''s age. Normal white matter tracts of the supratentorial brain. There is no evidence for recent intracranial ischemia or other cause of cytotoxic edema on diffusion weighted imaging (DWI). Normal T2* images of the brain without demonstrated susceptibility artifact. There is no demonstrated hemosiderin stain. No change in subcentimeter hyperintensity of the paravertebral white matter of the posterior right parietal lobe. Normal bilateral basal ganglia. Normal thalami. There is no extra-axial fluid accumulation. Normal flow voids within the major intracranial circulation suggesting patency by spin echo criteria. Normal venous enhancement. There is no enhancing intra-axial or extra-axial abnormality. There is enlargement of the sella turcica with increased CSF within the sella and flattening of the pituitary gland consistent with an empty sellar syndrome. Normal infundibular stalk, hypothalamus, and optic chiasm. Normal tectal plate and pineal gland. Normal midbrain, yeni and medulla. Normal cerebellum. Normal basal cisterns. Normal bilateral temporal bones. Normal bilateral internal auditory canals. No demonstrated orbital abnormality, within the constraints of a routine brain study. Normal visualized paranasal sinuses. Normal calvarium and skull base. Normal visualized soft tissue structures. Normal visualized upper cervical spine. MRI/Brain W/WO Contrast IMPRESSION: Normal unenhanced and enhanced MRI of the brain. Electronically Signed: Danie Araiza MD at 21:18 EDT ,
== END | disposition home or self-care (01) ==
PROVIDERS: PCP Family Medicine
DX: G35 Multiple sclerosis (principal)
CPT/HCPCS: 70553; A9575

== ENCOUNTER → 2023-10-15 | Outpatient (CLI) | payer OTHER, SELFPAY ==
[2023-10-15 15:28] LABS: Absolute Lymphocyte Count 1.11 X10^3/uL (0.83-4.51); Absolute Neutrophil Count 5.8 X10^3/uL (2.0-7.7); Basophil# 0.02 X10^3/uL; Basophil% 0.3 % (0-1); Eosinophil# 0.14 X10^3/uL; Eosinophils% 1.8 % (0-5); Hemoglobin 14.7 g/dL (12.0-15.0); Lymphocyte # 1.11 X10^3/ul (0.83-4.51); Lymphocyte % 14.4 % (19-41); Mean Corp Hgb Conc 32.7 g/dL (32-36); Mean Corpuscular Volume 94.9 fL (81-99); Mean Platelet Vol. 9.9 fl (6.2-12.0); Monocyte# 0.65 X10^3/uL; Monocyte% 8.4 % (0-10); NRBC Flagged by Analyzer 0 % (0-5); Neutrophil # 5.77 X10^3/uL (2.7-7.7); Neutrophil % 74.6 % (47-70); Platelet Count 260 K/mm3 (150-450); RBC Distribution Width CV 15.2 % (11.6-14.6); RBC Distribution Width SD 51.9 fl (35.1-43.9); Red Blood Count 4.74 M/mm3 (4.2-5.4); White Blood Count 7.7 K/mm3 (4.4-11.0)
[2023-10-15 15:59] LABS: ALB/GLOB Ratio 0.9 RATIO (0.9-2.4); AST(SGOT) 7 U/L (15-37); Alanine Aminotransfer ALT/SGPT 21 U/L (13-56); Albumin, Serum 3.3 g/dL (3.2-5.0); Alkaline Phosphatase 113 U/L (45-117); Anion Gap 5 (5-15); BUN 11 mg/dL (7-18); BUN/Creat Ratio 19.1 RATIO (10-20); Calcium,Total 9.1 mg/dL (8.5-10.1); Chloride 106 mmol/L (98-107); Creatinine, Serum 0.58 mg/dL (0.55-1.02); EST Glomerular Filtration Rate 116 mL/min (>60); Est Glom Filt Rate - Afr Amer 140 mL/min (>60); Globulin 3.7 g/dL (2.2-4.2); Glucose 107 mg/dL (74-106); Potassium 3.9 mmol/L (3.5-5.1); Sodium Level 140 mmol/L (136-145)
== END | disposition home or self-care (01) ==
LOC: BFHLAB 13:22
PROVIDERS: PCP Family Medicine; Visit Provider Internal Medicine
DX: Z79.899 Other long term (current) drug therapy (principal)
CPT/HCPCS: 36415; 80053; 85025

== ENCOUNTER → 2023-11-29 | Outpatient (CLI) | payer OTHER, SELFPAY ==
--- NOTE | 2023-11-29 10:53 | RAD_ITS ---
STUDY: X-RAY - LEFT KNEE REASON FOR EXAM: Female, 53 years old. PAIN TECHNIQUE: 4 views of the left knee. COMPARISON: None. FINDINGS: Normal visualized distal femur. Normal visualized proximal tibia and fibula. Normal proximal tibiofibular articulation. There is no demonstrated fracture. Normal medial femorotibial compartment. There is minimal degenerative arthrosis of the lateral femorotibial compartment. There is minimal degenerative arthrosis of the patellofemoral articulation. There is a small volume joint effusion. The soft tissue structures are unremarkable. RAD/Knee 4 or More Views IMPRESSION: Minimal degenerative arthrosis of the patellofemoral and lateral femorotibial compartments. Small joint effusion. No demonstrated fracture. Electronically Signed: Valdo Sullivan MD at 13:24 EDT ,
== END | disposition home or self-care (01) ==
LOC: MTRAD 10:51
PROVIDERS: PCP Family Medicine; Referring Provider Family Medicine; Visit Provider Family Medicine
DX: M25.562 Pain in left knee (principal)
CPT/HCPCS: 73564

== ENCOUNTER 2023-11-30 15:22 | Emergency (ER) | payer OTHER, SELFPAY ==
[2023-11-30 15:23] VITALS: BP 121/97; PULSE 116; RESP 18; TEMP 35.7; O2SAT 96
--- NOTE | 2023-11-30 16:00 | ED.RN ---
Pt states she believes she just hyper-extended her knee and is going to go home an rest it, ice and take her prescribed anti-inflammatory medicine. Will return if condition worsens.
== END 2023-11-30 16:01 | disposition left against medical advice (07) ==
LOC: ED 16:01
PROVIDERS: PCP Family Medicine
DX: Z53.21 Procedure and treatment not carried out due to patient leaving prior to being seen by health care provider (principal)

== ENCOUNTER 2023-11-30 21:56 | Emergency (ER) | payer OTHER, SELFPAY ==
[2023-11-30 21:56] VITALS: BP 133/90; PULSE 122; RESP 16; TEMP 37; O2SAT 99
--- NOTE | 2023-11-30 22:20 | RAD_ITS ---
STUDY: X-RAY - LEFT KNEE REASON FOR EXAM: Female, 53 years old. TRAUMA TECHNIQUE: 4 view(s) of the knee. COMPARISON: None. FINDINGS: Normal visualized distal femur. Normal visualized proximal tibia and fibula. Normal proximal tibiofibular articulation. There is no demonstrated fracture. Normal medial femorotibial compartment. Normal lateral femorotibial compartment. Normal patellofemoral articulation. There is no demonstrated joint effusion. The soft tissue structures are unremarkable. RAD/Knee 4 or More Views IMPRESSION: No definite acute or significant abnormality seen. Electronically Signed: Jace Schmidt MD at 22:55 EDT ,
[2023-11-30 23:02] VITALS: BP 130/82; PULSE 110; RESP 20; O2SAT 92
--- NOTE | 2023-12-01 00:21 | EDS_ITS ---
HPI History of Present Illness HPI Narrative: Patient presents with left knee pain that became worse today. Patient states she was walking down some steps when she missed a step and hyperextended her left knee. Patient states she has been having some knee problems and had outpatient x-rays done yesterday by her primary care physician. Patient states that her primary care physician referred her back to the emergency department for repeat x-rays due to the fall. Patient states her pain is worse with weight bearing and with twisting. Patient describes her pain as sharp. Patient denies any paresthesias or weakness. Patient denies any other injuries. Chief Complaint: Lower Extremity Injury Informant: patient Occured/Mechanism Comment: Hyperextended knee after missing a step Onset/Context/Timing Onset: Today Context: Sudden Onset Timing: Continuous Quality of Pain: Sharp Location: Left knee Worsened by: Weightbearing, twisting Relieved by: Nothing Associated Symptoms Associated Symptoms: Negative for Parasthesia, Weakness or Loss of Funtion PFSH PFSH Medical History Psoriatic arthritis Spinal stenosis Multiple sclerosis Home Medications ?Medication ?Instructions ?Recorded ?Last Taken ?Type pregabalin 150 mg capsule (Lyrica) 150 mg PO TID 05/26/20 Unknown History armodafinil 250 mg tablet 250 mg PO DAILY 06/15/20 Unknown History clobetasol 0.05 % topical cream 1 applic topical .COMPLEX #15 grams 01/23/22 Unknown Rx ofatumumab 20 mg/0.4 mL 20 mg subcut QMONTH 02/27/23 Unknown History subcutaneous pen injector (Kesimpta Pen) diclofenac potassium 50 mg tablet 50 mg PO TID 11/30/23 Unknown History spironolactone 50 mg tablet 50 mg PO DAILY swelling 11/30/23 Unknown History Allergy/AdvReac Type Severity Reaction Status Date / Time No Known Allergies Allergy Verified 11/30/23 15:23 Family History Mother Heart disease Diabetes Grandmother Heart disease Brother Seizures Surgical History oral/throat surgery Social History household members: spouse number of children: 5 current occupational status: employed current occupation: self - [employer] history of recent travel: No Smoking Status: Current every day smoker tobacco type: cigarettes Tobacco: How many years used: 20 alcohol intake: never substance use type: does not use what type of physical activity do you participate in: walking frequency: 3-4 times per week seatbelt use: always do you feel safe at home: Yes additional social history: - Lusi ROS ROS ED Constitutional Constitutional ED: Denies chills or fever(s) Eyes Eyes: Denies blurry vision or change in vision ENT ENT ED: Denies rhinorrhea or sore throat Cardiovascular Cardiovascular: Denies chest pain or palpitations Respiratory/Chest Respiratory/Chest: Denies cough or dyspnea Gastrointestinal Gastrointestinal: Denies nausea or vomiting Genitourinary Genitourinary ED: Denies dysuria or hematuria Musculoskeletal Musculoskeletal: Denies back pain or neck pain Integumentary Denies abscess or rash Neurologic Neurologic: Denies headache(s) or weakness Allergic/Immunologic Allergic/Immunologic ED: Denies mouth swelling or urticaria EXAM Physical Exam Const Vital Signs: 11/30/23 21:56 11/30/23 23:02 Temperature 98.6 F Temperature Source Temporal Pulse Rate 122 H 110 H Respiratory Rate 16 20 H Blood Pressure 133/90 H 130/82 H Blood Pressure Mean 104 98 Pulse Ox 99 92 Oxygen Delivery Method Room Air Room Air Positive well nourished and well developed General Appearance ED: well developed and NAD HEENT Reports moist mucous membranes normocephalic and atraumatic Neck full ROM and supple Extremity Extremity Narrative: There is mild tenderness over the left knee. There is no effusion. There is no edema or ecchymosis. There is no deformity noted. Extensor mechanism is intact. Range of motion was limited in all motions of the left knee secondary to pain. There is no laxity. There is some guarding on examination. Lorelei's test is negative. Varus and valgus stress test were negative. Sensation was intact to light touch bilaterally in lower extremities. Posterior tibial pulses are equal bilaterally. Neuro oriented x3, CN's II-XII intact bilaterally, moves all extremities and no sensory deficits noted Sensorium / Orientation: alert Motor Exam: strength 5/5 throughout Psych mental status grossly normal MDM MDM MDM Narrative Medical decision making narrative: Differential diagnosis includes sprain, and occult fracture. X-rays of the left knee will be obtained to assess for occult fracture. Radiography Diagnostic Testing: Clinical Impression(s) from Imaging Studies Knee X-Ray 11/30/23 22:20 IMPRESSION: No definite acute or significant abnormality seen. Electronically Signed: Jace Schmidt MD at 22:55 EDT , X-rays of the left knee were obtained. There are 4 views. On my independent interpretation, there is no acute fracture or dislocation. There are some mild degenerative changes noted. Radiologist also interpreted the x-rays and agrees. Treatment and Re-Evaluation Narrative: Smoking cessation was discussed. Patient was advised of her findings. Patient was given a knee immobilizer and crutches. Patient was instructed to ice and elevate the left knee. Patient was instructed to continue her diclofenac as previously prescribed. Patient was instructed to follow-up with her primary care physician in 5 to 7 days. Patient understood and was agreeable with the plan. All questions were answered. Discharge Plan Triage Chief Complaint: Lower Extremity Injury ED Provider: Issa Walden Dx/Rx/DC Orders Clinical Impression: Left knee sprain, Tobacco use disorder Instructions: ED Knee Sprain Prescriptions: No Action pregabalin [Lyrica] 150 mg capsule 150 mg PO TID armodafinil 250 mg tablet 250 mg PO DAILY diclofenac potassium 50 mg tablet 50 mg PO TID spironolactone 50 mg tablet 50 mg PO DAILY clobetasol 0.05 % cream 1 applic TOPICAL .COMPLEX Qty: 15 2RF Rx Instructions: 1 applic TOPICAL apply thin layer as directed;massage in to cover area. Use daily up to 1 week prn. Primary Care Provider: Oleg Covington Referrals: Oleg Covington DO [Primary Care Provider] - 5-7 Days Print Language: Barbadian Disposition Disposition: Home, Self Care
== END 2023-12-01 01:42 | disposition home or self-care (01) ==
PROVIDERS: Emergency Provider Emergency Medicine; PCP Family Medicine; Visit Provider Emergency Medicine
DX: S83.92XA Sprain of unspecified site of left knee, initial encounter (principal); F17.210 Nicotine dependence, cigarettes, uncomplicated; W10.9XXA Fall (on) (from) unspecified stairs and steps, initial encounter
CPT/HCPCS: 73564; 99283

== ENCOUNTER → 2024-04-05 | Outpatient (CLI) | payer OTHER, SELFPAY ==
--- NOTE | 2024-04-05 08:31 | MRI_ITS ---
EXAM: MR LEFT LOWER EXTREMITY WITHOUT INTRAVENOUS CONTRAST, KNEE CLINICAL INDICATION: pain, eval meniscus tears TECHNIQUE: Multiplanar and multisequence MR images of the left knee without intravenous contrast. COMPARISON: No relevant prior studies available. FINDINGS: BONES/JOINTS: Recent nondisplaced focal fracture involving the peripheral corner of the medial tibial plateau. No other marrow signal alterations. Torn posterior root ligament of the medial meniscus with associated 5 mm of peripheral extrusion of the body segment. Small amount of suprapatellar joint fluid. No synovial hypertrophy. EXTENSOR MECHANISM: Unremarkable. MEDIAL MENISCUS: See above. LATERAL MENISCUS: Unremarkable. MEDIAL CAPSULE/SUPPORTING STRUCTURES: Unremarkable. Intact. LATERAL CAPSULE/SUPPORTING STRUCTURES: Unremarkable. Lateral collateral ligamentous complex, inclusive of the popliteal tendon, are intact. ANTERIOR CRUCIATE LIGAMENT: Unremarkable. Intact. POSTERIOR CRUCIATE LIGAMENT: Unremarkable. Intact. MUSCLES: Unremarkable. CARTILAGE: Unremarkable. Intact. FLUID: 2.6 x 2.3 cm Handy''s cyst. No joint effusion. OTHER SOFT TISSUES: Subcutaneous edema anterior to the quadriceps tendon. MRI/Lower Ext Joint Only (Routine) IMPRESSION: 1. Torn posterior root ligament of the medial meniscus with associated 5 mm of peripheral extrusion of the body segment. 2. Recent no displaced focal fracture involving the peripheral corner of the medial tibial plateau. 3. 2.6 x 2.3 cm Handy''s cyst. Electronically Signed: Jose Dyson MD at 21:28 EST ,
== END | disposition home or self-care (01) ==
PROVIDERS: PCP Family Medicine; Referring Provider Orthopaedic Surgery Sports Medicine; Visit Provider Orthopaedic Surgery Sports Medicine
DX: M25.562 Pain in left knee (principal)
CPT/HCPCS: 73721

== ENCOUNTER 2024-04-23 09:37 | Outpatient (RCR) | payer SELFPAY ==
--- NOTE | 2024-04-23 11:12 | HP.PTEVAL_ITS ---
Patient's Visit Information Visit Information Visit Information: GILBERTO DALAL is a 54 year old F referred to Physical Therapy by Dr. Otilio Ochoa MD with a diagnosis of TEAR OF MEDIAL MENSUCUS ,LEFT KNEE ,UNILATERAL PRIMARY OA ,LEFT KNEE. Date of Evaluation: 04/23/24 Physical Therapist: Eben Mason, PT, Cert MDT, OCS Visit Plan Frequency: 2x /Week Duration: 4 Weeks Plan: PT INTERVENTIONS ROM KNEE ,STRENGTHENING QUADS/HAMS/HIP ,FUNCTIONAL STRENGTHENING AND MODALTIES Subjective Subjective: This 54 female presents to physical therapy with left knee pain .Patient has had left knee pain for 6 months.Occurred when hyperextended Seen DR Ochoa did x-rays - and MRI showed Torn posterior root ligament of the medial meniscus with associated 5 mm of peripheral extrusion of the body segment.Recent no displaced focal fracture involving the peripheral corner of the medial tibial plateau. Patient had cortisone injection helped min. Recommended gel injection. Patient has pain medication. Aggravating factors unable to squat and kneel ,pain with stairs and extended walking. Denies paresthesia/tingling-. No locking and clicking. Patient pain affects sleeping. Patient condition affects QOL and function/job demands. Patient to avoid surgery and decrease pain. SOCIAL: VOCATION: [employer] Pain Left Knee: Pain Intensity (Out of 10): 7 Pain Intensity Range: 10 Objective Objective: POSTURE: mild forward posture GAIT: reciprocal pattern mild antalgic gait NEURO: denies paresthesia/tingling PALAPTION: tender medial joint line AROM: 0-125 knee flexion MMT: ( peak force) quads 9.8 ,hamstrings 7.3 ,hip flexion 12.3 ,ankle pain STAIRS: one step at time with rail Special Tests L Knee Yahir - Meniscus: Positive L Knee Lorelei - ACL: Negative L Knee Valgus - MCL: Negative L Knee Varus - LCL: Negative L Knee Patellar Apprehension - PFS: Negative L Knee Patellar Grind - PFS: Negative Balance/Special Test Scores Lower Extremity Functional Score: 35 Goals Goal 1:: Patient to be I with HEP Goal Time Frame: 4-6 Weeks Goal 2:: Patient to improve strength peak force quads/hams/hip by 10-15# to improve function and strength Goal Time Frame: 4-6 Weeks Goal 3:: Patient to improve LFES score by 5 points to improve QOL and function Goal Time Frame: 4-6 Weeks Goal 4:: Patient to improve quality gait with less pain community distances Goal Time Frame: 4-6 Weeks Goal 5:: Patient to demonstrate 50% improvement with increase function and gait Goal Time Frame: 4-6 Weeks Rehabilitation Potential Physical Therapy Diagnosis: This patient has meniscus medial tear root with decrease ROM ,strength ,impairs gait and stairs thus benefit from skilled PT Rehabilitation Potential: Good Anticipated Interventions Patient/Client Instruction: Educate patient on: Condition and Plan of Care For the Purpose of:: To decrease pain, To increase ROM, To improve muscle performance and motor function, To increase tolerance to activity/c ondition/position, To improve ability of physical actions for home/community/work/leisure and To improve tolerance to ADL's Therapeutic Exercise to Include: Strength training, Endurance training, Balance training, Flexibilty training, In an aquatic setting and Dynamic Lumbar Stabilization Comment: quafds/hams/hip For the Purpose of:: To decrease pain, To increase ROM, To improve muscle performance and motor function, To increase tolerance to activity/condition/position, To improve ability of physical actions for home/com munity/work/leisure, To improve health of tissue, To decrease soft tissue restriction, To increase flexibility/ROM, To improve balance and To improve tolerance to ADL's TENS: Yes IF ES: Yes Cryotherapy (ice pack, ice massage): Yes Thermo therapy (hot pack): Yes Ultrasound (thermal/non thermal): Yes For the Purpose of:: To decrease pain, To decrease swelling/inflammation, To improve nutrient delivery to tissue and To increase oxygenation perfusion Text: Thank you for the opportunity to evaluate your patient. For Medicare and Medicare HMO plans, please review the plan of care and approve it. It will need to be FAXED BACK to us at [phone] for Medicare purposes. For Medicare only, by signing this I certify the plan of care. Please let me know if there are questions or concerns regarding this plan of care. Physician Signature: Date:
--- NOTE | 2024-08-21 11:32 | HP.PTDCNRP_ITS ---
Patient Information Patient Information: GILBERTO DALAL was seen in my office for initial evaluation on 04/23/24. The following Plan of Care was established for this patient: POC Established Initial Frequency: 2x /Week Initial Duration: 4 Weeks Anticipated Interventions Patient/Client Instruction: Educate patient on: Condition and Plan of Care For the Purpose of:: To decrease pain, To increase ROM, To improve muscle performance and motor function, To increase tolerance to activity/condition/position, To improve ability of physical actions for home/community/work/leisure and To improve tolerance to ADL's Therapeutic Exercise to Include: Strength training, Endurance training, Balance training, Flexibilty training, In an aquatic setting and Dynamic Lumbar Stabilization For the Purpose of:: To decrease pain, To increase ROM, To improve muscle performance and motor function, To increase tolerance to activit y/condition/position, To improve ability of physical actions for home/community/work/leisure, To improve health of tissue, To decrease soft tissue restriction, To increase flexibility/ROM, To improve balance and To improve tolerance to ADL's TENS: Yes IF ES: Yes Cryotherapy (ice pack, ice massage): Yes Thermo therapy (hot pack): Yes Ultrasound (thermal/non thermal): Yes For the Purpose of:: To decrease pain, To decrease swelling/inflammation, To improve nutrient delivery to tissue and To increase oxygenation perfusion Last Seen Last Seen: This patient was last seen in our office . Pertinent comments regarding their Physical therapy will appear below: Patient seen for PT for left knee meniscus tear for HEP and F/U with MD At this point I will be discontinuing this patient from physical therapy. I would be happy to see this patient again in the future if found appropriate by the physician. Thank you! Eben Mason, PT, Cert MDT, OCS Balance/Gait/Functional tests Balance/Special Test Scores Lower Extremity Functional Score: 35
== END 2024-04-23 19:00 | disposition home or self-care (01) ==
LOC: PT 09:37
PROVIDERS: PCP Family Medicine; Referring Provider Orthopaedic Surgery Sports Medicine; Visit Provider Orthopaedic Surgery Sports Medicine
DX: S83.242D Other tear of medial meniscus, current injury, left knee, subsequent encounter (principal); M17.12 Unilateral primary osteoarthritis, left knee; M25.562 Pain in left knee
CPT/HCPCS: 97110; 97162

== ENCOUNTER → 2024-06-30 | Outpatient (CLI) | payer OTHER, SELFPAY ==
[2024-06-30 18:02] LABS: Absolute Lymphocyte Count 1.18 X10^3/uL (0.83-4.51); Basophil# 0.03 X10^3/uL; Basophil% 0.3 % (0-1); Eosinophil# 0.07 X10^3/uL; Eosinophils% 0.8 % (0-5); Hematocrit 43.7 % (37-47); Hemoglobin 14.8 g/dL (12.0-15.0); Lymphocyte # 1.18 X10^3/ul (0.83-4.51); Lymphocyte % 13.4 % (19-41); Mean Corp Hgb Conc 33.9 g/dL (32-36); Mean Corpuscular Hgb 31.8 pg (27.0-32.0); Mean Platelet Vol. 9.8 fl (6.2-12.0); Monocyte# 0.44 X10^3/uL; NRBC Flagged by Analyzer 0 % (0-5); Neutrophil # 7.03 X10^3/uL (2.7-7.7); Neutrophil % 79.8 % (47-70); Platelet Count 275 K/mm3 (150-450); RBC Distribution Width CV 14.7 % (11.6-14.6); RBC Distribution Width SD 50.7 fl (35.1-43.9); Red Blood Count 4.65 M/mm3 (4.2-5.4); White Blood Count 8.8 K/mm3 (4.4-11.0)
[2024-06-30 18:31] LABS: ALB/GLOB Ratio 1.3 RATIO (0.9-2.4); AST(SGOT) 13 U/L (<=31); Alanine Aminotransfer ALT/SGPT 10 U/L (<=34); Albumin, Serum 3.8 g/dL (3.5-5.0); Alkaline Phosphatase 94 U/L (35-104); Anion Gap 9 (5-15); BUN 12 mg/dL (4-19); BUN/Creat Ratio 15.3 RATIO (10-20); Calcium,Total 9.5 mg/dL (7.6-11.0); Carbon Dioxide 27.1 mmol/L (21.0-32.0); Chloride 103 mmol/L (98-108); Creatinine, Serum 0.77 mg/dL (0.70-1.20); EST Glomerular Filtration Rate 91 (>60); Glucose 184 mg/dL (70-99); Potassium 3.2 mmol/L (3.3-5.1); Protein, Total 6.8 g/dL (5.9-8.4); Sodium Level 139 mmol/L (133-145); Total Bilirubin 0.24 mg/dL (0.00-1.30)
[2024-06-30 18:34] LABS: Vitamin D,25 Hydroxy 51.4 ng/mL (30-100)
[2024-06-30 21:56] LABS: HIV Nonreactive (Nonreactive)
[2024-07-02 19:07] LABS: HEPATITIS B SURFACE AG Negative (Negative); Hep C Antibodies Non Reactive (Non Reactive); Hepatitis A IgM Antibody Negative (Negative); Hepatitis B Core AB IgM Negative (Negative); QNTFERON TB Mitogen Value > 10.00 IU/mL (.); QNTFERON TB Nil Value 0.04 IU/mL (.); QNTFERON TB1+ Ag Value 0.03 IU/mL (.); QNTFERON TB2+ Ag Value 0.03 IU/mL (.); QNTIFERON TB Positive Criteria Negative (Negative); V-Zoster IgG (Immunity) Reactive (Non Reactive)
== END | disposition home or self-care (01) ==
PROVIDERS: Internal Medicine; PCP Family Medicine; Visit Provider Family Medicine
DX: R53.82 Chronic fatigue, unspecified (principal); E55.9 Vitamin D deficiency, unspecified; Z79.899 Other long term (current) drug therapy
CPT/HCPCS: 36415; 80053; 80074; 82306; 85025; 86480; 86703; 86787